=== PATIENT | male | born 1955 | race African-American/Black ===

== ENCOUNTER 2017-04-17 19:26 | Emergency (ER) | payer OTHER ==
[2017-04-17 19:55] LABS: #Basophils 0.1 thou/uL (0.0-0.2); #Eosinphils 0.4 thou/uL (0.0-0.7); #Lymphocytes 1.7 thou/uL (1.20-3.40); #Monocytes 0.7 thou/uL (0.11-0.59); #Neutrophils 4.6 thou/uL (1.40-6.50); %Basophils 0.7 % (0.0-1.0); %Eosinophils 5.8 % (0.0-10.0); %Lymphocytes 22.8 % (21.0-51.0); %Monocytes 9.5 % (0.0-10.0); %Neutrophils 61.2 % (42.0-75.0); Hemoglobin 10.1 g/dL (14.0-18.0); Mean Corpuscular HGB CONC 32.9 g/dL (32.0-36.0); Mean Platelet Volume 6.8 fL (7.4-10.4); Platelet Count 243 thou/uL (130-400); RBC Distribution Width 12.9 % (11.5-14.5); Red Blood Cell (RBC) Count 3.38 mill/uL (4.70-6.10); White Blood Cell (WBC) Count 7.5 thou/uL (4.8-10.8)
[2017-04-17 20:04] LABS: INR-International Normal Ratio 1.1; PTT 31.6 SEC (22.9-36.1); Prothrombin Time 14.3 SEC (12.0-14.7)
[2017-04-17 20:06] LABS: D-Dimer Test 0.57 *mcg/mL (0.27-0.43)
[2017-04-17 20:15] LABS: ALT (SGPT) 11 U/L (8-55); AST (SGOT) 14 U/L (5-34); Alkaline Phosphatase 73 U/L (40-150); Anion Gap 13 mmol/L (10-20); BUN (Urea Nitrogen) 73 mg/dL (8.4-25.7); Bilirubin, Total 0.2 mg/dL (0.2-1.2); CK (CPK) 529 U/L (30-200); Calc. Creatinine Clearance 0 mL/min (70-130); Calcium 7.2 mg/dL (7.8-10.44); Carbon Dioxide 25 mmol/L (23-31); Chloride 103 mmol/L (98-107); Estimated GFR-MDRD 5; Globulin 3.2 g/dL (2.4-3.5); Glucose 162 mg/dL (80-115); Lipase 12 U/L (8-78); Magnesium 1.6 mg/dL (1.6-2.6); Potassium 4.4 mmol/L (3.5-5.1); Protein, Total 6.2 g/dL (5.8-8.1); Sodium 137 mmol/L (136-145)
--- NOTE | 2017-04-17 20:15 | RAD ---
PORTABLE AP CHEST X-RAY 04/17/17 HISTORY: Chest pain and cough for a few days. COMPARISON: 03/17/16. FINDINGS: Postsurgical changes related to median sternotomy are noted. Cardiac silhouette is magnified by proje ction and stable in size. There is patchy increased density at the left lung base with blunting of th e left lateral costophrenic angle stable from the prior study as well as the study on 10/10/15 probabl y related to chronic pleural and parenchymal lung changes. The lungs are otherwise clear. No other in terval change. IMPRESSION: 1. No acute cardiopulmonary process. 2. Chronic pleural and parenchymal lung changes at the left lung base. POS: [facility]
[2017-04-17 20:18] LABS: CKMB 5.8 ng/mL (0-6.6); Troponin I 0.016 ng/mL (< 0.028)
[2017-04-17] MEDS ORDERED: Nitroglycerin 2% Ointment 1 INCH/1 GM Packet ONE (20:47)
[2017-04-17 21:08] LABS: Bilirubin Negative (Negative); Blood, Urine Moderate (Negative); Clarity CLEAR (Clear); Glucose, Urine (Dipstick) 250 mg/dL (Negative); Leukocyte Negative (Negative); Nitrite Negative (Negative); Protein, Urine (Dipstick) 300 mg/dL (Neg-Trace); Specific Gravity, Urine 1.014 (1.002-1.036)
[2017-04-17 21:11] LABS: Bacteria/HPF None Seen HPF (None Seen); Hyaline Casts/LPF 0-3 HYALINE CAST LPF (0-3 Hyaline); Pathc Cast-AUWi Flag 0.13 (0-2.49); Squamous Epithelial None Seen HPF (0-3); WBC/HPF 0-3 HPF (0-3)
== END 2017-04-17 21:37 | disposition home or self-care (01) ==
LOC: ERS 19:26
DX: R07.9 Chest pain, unspecified (principal); E11.9 Type 2 diabetes mellitus without complications; I10 Essential (primary) hypertension; E78.5 Hyperlipidemia, unspecified; E66.9 Obesity, unspecified; Z79.899 Other long term (current) drug therapy
CPT/HCPCS: 71045; 80053; 81003; 81015; 82550; 82553; 83690; 83735; 83880; 84484; 85025; 85379; 85610; 85730; 93005

== ENCOUNTER 2018-01-17 13:06 | Observation (INO) | payer MEDICARE, MEDICAID ==
[2018-01-17 14:16] LABS: #Basophils 0.1 thou/uL (0.0-0.2); #Eosinphils 0.5 thou/uL (0.0-0.7); #Lymphocytes 1.6 thou/uL (1.20-3.40); #Monocytes 0.9 thou/uL (0.11-0.59); #Neutrophils 3.8 thou/uL (1.40-6.50); %Basophils 1.1 % (0.0-1.0); %Eosinophils 7.3 % (0.0-10.0); %Lymphocytes 23.8 % (21.0-51.0); %Monocytes 13.1 % (0.0-10.0); %Neutrophils 54.8 % (42.0-75.0); Hemoglobin 9.4 g/dL (14.0-18.0); Mean Corpuscular Hemoglobin 28.4 pg (27.0-31.0); Mean Corpuscular Volume 85.9 fL (78.0-98.0); Mean Platelet Volume 6.5 fL (7.4-10.4); Platelet Count 356 thou/uL (130-400); RBC Distribution Width 12.3 % (11.5-14.5); White Blood Cell (WBC) Count 6.9 thou/uL (4.8-10.8)
[2018-01-17 14:29] LABS: ALT (SGPT) 16 U/L (8-55); AST (SGOT) 16 U/L (5-34); Alkaline Phosphatase 62 U/L (40-150); Anion Gap 15 mmol/L (10-20); BUN (Urea Nitrogen) 57 mg/dL (8.4-25.7); Bilirubin, Total 0.3 mg/dL (0.2-1.2); Calc. Creatinine Clearance 0 mL/min (70-130); Calcium 7.9 mg/dL (7.8-10.44); Carbon Dioxide 26 mmol/L (23-31); Chloride 100 mmol/L (98-107); Estimated GFR-MDRD 4; Globulin 3.2 g/dL (2.4-3.5); Glucose 150 mg/dL (80-115); Magnesium 1.6 mg/dL (1.6-2.6); Potassium 4.2 mmol/L (3.5-5.1); Protein, Total 6.2 g/dL (5.8-8.1); Sodium 137 mmol/L (136-145)
--- NOTE | 2018-01-17 15:00 | CT ---
CT OF THE HEAD WITHOUT CONTRAST: DATE: 01/17/2018. COMPARISON: 12/09/2015. HISTORY: Trouble sleeping for 3 weeks, hearing loss in both ears. TECHNIQUE: Axial CT imaging at 5 mm intervals from vertex through the skull base without contrast. FINDINGS: Partial opacification of the mastoid air cells noted bilaterally, left greater than right, new when c ompared to the prior exam. No acute osseous abnormality is seen. There is atherosclerotic calcification of the cavernous carotid arteries. No intracranial hemorrhage, midline shift, mass effect, or ventricular enlargement. IMPRESSION: New opacification of the mastoid air cells bilaterally. This could be related to mastoiditis in the proper clinical setting. No intracranial hemorrhage or acute osseous abnormality. POS: [facility]
[2018-01-17] MEDS ORDERED: Ondansetron ODT 4 MG TAB PO PRN (15:24)
[2018-01-17] MEDS ORDERED: Acetaminophen 325 MG TAB PO PRN (15:24)
[2018-01-17] MEDS ORDERED: Ondansetron PF 4 MG/2 ML Vial IVP PRN (15:24)
[2018-01-17 15:59] LABS: Actual Bicarbonate (HCO3a) 26.3 mEq/L (22-28); Analyzer IN Cardio ER; Base Excess (BEa) 1.6 mEq/L (-2.0 to +3.0); CO2 Tension 41.5 mmHg (35.0-45.0); Calcium, Ionized 0.95 mmol/L (1.12-1.30); Carboxyhemoglobin (COHb) 0.3 gm% (0.0-3.0); Hemoglobin (Hb) 9.9 g/dL (14.0-18.0); O2 Tension (PaO2) 64.8 mmHg (> 80.0); Potassium - ABG Lab 4.19 mmol/L (3.70-5.30); pH, Arterial 7.42 (7.35-7.45)
[2018-01-17 16:00] LABS: ALV-art Gradient 33.055 (0-20); Puncture Site RBRACH
[2018-01-17 20:05] VITALS: BMI 38.7
[2018-01-17] MEDS ORDERED: Dextrose 5% in Water 1,000 ML IV PRN (22:05)
[2018-01-17] MEDS ORDERED: HYDROcodone/Acetaminophen 5/325 mg Tablet PO PRN (22:05)
[2018-01-17] MEDS ORDERED: HumaLOG 300 UNITS/3 ML VIAL SC PRN ×2 (22:05)
[2018-01-17] MEDS ORDERED: Dextrose 50% Abboject 50 ML SYRINGE IVP PRN (22:05)
[2018-01-17] MEDS ORDERED: NIFEdipine XL 60 MG TAB PO SCH (22:15)
[2018-01-17] MEDS ORDERED: Carvedilol 6.25 MG TAB PO SCH (22:15)
[2018-01-17] MEDS: Ampicillin/Sulbactam 1.5 GM in Sodium Chloride 0.9% 100 ML IVPB SCH (23:16)
[2018-01-17] MEDS: Calcium Acetate 667 MG CAP PO SCH (23:16)
--- NOTE | 2018-01-18 01:45 | HP ---
CHIEF COMPLAINT: Daytime sleepiness, hearing loss, inability to sleep at night, and syncopal episode. HISTORY OF PRESENT ILLNESS: This is a 62-year-old gentleman with end-stage renal disease, peritoneal dialysis dependent, who was recently admitted to [facility] with hypertensive urgency. The patient presented there with elevated blood pressure and according to the , he was noted to have a slurred speech. No imaging studies according to them was done and the patient was subsequently discharged after the blood pressure was controlled by resumption of the patient's antihypertensive medications. According to the patient and , ever since then, the patient has not been himself, he has not been able to sleep at night and with excessive sleepiness while driving to the point that the patient has fallen asleep 3 times while driving. On one episode, the patient, coming out, slumped and this, he attributed to a sudden feeling of excessive sleepiness. No jerky movements and no convulsive episode noted. Over the course of these illnesses, the patient now complained of hearing loss and very difficult to communicate with this patient as his hearing seems to be going down. The patient presented to the ER with a constellation of these symptoms and a decision has been taken to admit this patient at least for observation. According to the , the patient sleeps, snores at night and may occasionally cease from breathing, raising the possibility of significant sleep apnea in this patient causing daytime somnolence. PAST MEDICAL HISTORY: Significant for end-stage renal disease, peritoneal dialysis dependent, diabetes, obesity, hypertension, and hyperparathyroidism. MEDICATIONS: Reviewed and documented on Medicaid. ALLERGIES: TRAMADOL. FAMILY HISTORY: Not significant related to present illness. SOCIAL HISTORY: Denies alcohol, tobacco, or illicit drug use. REVIEW OF SYSTEMS: As documented in the body of the history. All the other systems were reviewed and found not to be significantly related to present illness. PHYSICAL EXAMINATION: GENERAL: The patient was found to be very anxious and nervous about his condition, not able to be following. VITAL SIGNS: Blood pressure 178/72, pulse 86, respiratory rate of 20, afebrile, temperature 98, O2 saturation of 100% on room air. HEENT: Unremarkable. CARDIOVASCULAR: First and second sounds were heard. RESPIRATORY : Clear to auscultation. DIGESTIVE : Revealed an obese abdomen with positive bowel sounds. EXTREMITIES: No peripheral edema. SKIN: No new bruise or rash. LYMPHATICS: No peripheral lymphadenopathy. IMPRESSION: 1. End-stage renal disease, peritoneal dialysis dependent. 2. Excessive daytime somnolence, query cause, may be related to possible severe sleep apnea. 3. Obesity. 4. Diabetes mellitus type 2. 5. Hearing loss and possibly related to the recent CT diagnosis of mastoiditis. PLAN: 1. Admit the patient to telemetry overnight for observation due to reports of syncopal episode. 2. IV antibiotics and subsequently transition to oral Augmentin on discharge, will follow up with ENT. 3. We will monitor the patient's oximetry overnight to identify any possibility of significant hypoxic episode. 4. The patient to benefit from official sleep study. 5. Further management will be dependent on the clinical course. 6. Code status is full. Job ID: [id number]
[2018-01-18 07:27] LABS: Albumin 2.8 g/dL (3.4-4.8); Anion Gap 14 mmol/L (10-20); BUN (Urea Nitrogen) 51 mg/dL (8.4-25.7); BUN/Creatinine Ratio 3.53; Calc. Creatinine Clearance 9 mL/min (70-130); Carbon Dioxide 27 mmol/L (23-31); Chloride 100 mmol/L (98-107); Estimated GFR-MDRD 4; Glucose 269 mg/dL (80-115); Phosphorus 5.7 mg/dL (2.3-4.7); Potassium 3.9 mmol/L (3.5-5.1); Sodium 137 mmol/L (136-145)
[2018-01-18] MEDS ORDERED: Carvedilol 25 MG TAB PO SCH (08:00)
[2018-01-18] MEDS: Ampicillin/Sulbactam 1.5 GM in Sodium Chloride 0.9% 100 ML IVPB SCH (08:10)
[2018-01-18] MEDS: Calcium Acetate 667 MG CAP PO SCH ×3 (08:10→16:59)
[2018-01-18] MEDS ORDERED: NIFEdipine XL 90 MG TAB PO SCH (09:00)
[2018-01-18] MEDS ORDERED: Minoxidil 2.5 MG TAB PO SCH (09:00)
[2018-01-18] MEDS ORDERED: Carvedilol 6.25 MG TAB PO SCH ×3 (09:00→21:00)
[2018-01-18] MEDS ORDERED: Aspirin 325 mg Enteric Coated Tablet PO SCH (09:00)
[2018-01-18] MEDS ORDERED: NIFEdipine XL 60 MG TAB PO SCH (09:00)
[2018-01-18 15:49] VITALS: BP 176/79; TEMP 97.4
[2018-01-19] MEDS ORDERED: Calcitriol 0.25 MCG CAP PO SCH (09:00)
--- NOTE | 2018-01-19 12:49 | DIS ---
DATE OF ADMISSION: 01/17/2018 DATE OF DISCHARGE: 01/18/2018 For details of the history and physical, please refer to dictations and records. SUMMARY: This is a 62-year-old gentleman with end-stage renal disease, who presented here with daytime somnolence, hearing difficulty and hypoxia. The patient was evaluated with overnight pulse oximetry that did indicate hypoxic respiratory failure overnight; however, unfortunately, the patient could not qualify for home oxygen. In any case, the patient is very eager to be discharged home with instruction to undergo outpatient sleep study. It is very obvious that this patient has significant sleep apnea result in a hypoxic respiratory failure overnight, which will require CPAP machine to assist with respiration. The patient has also been placed on antibiotics for the recent diagnosis of bilateral mastoiditis, which we do believe contributing to the patient's hearing loss. DISCHARGE DIAGNOSES: Include; 1. Nocturnal hypoxic respiratory failure. 2. End-stage renal disease, peritoneal dialysis dependent. 3. Obesity. 4. Bilateral mastoiditis with hearing deficit. 5. Hypertension. PLAN: 1. To stay compliant with medication. 2. Follow up with Ear, Nose and Throat. 3. Follow up with the sleep study. 4. All this information is being communicated with the patient. 5. Further management will be dependent on the clinical course. Total time spent including face to face encounter 31 minutes. Job ID: [id number]
== END 2018-01-18 18:28 | disposition home or self-care (01) ==
LOC: ERS 13:06 → 2SW 18:24
PROVIDERS: ADMIT Internal Medicine Nephrology; ATTEND Internal Medicine Nephrology
DX: J96.91 Respiratory failure, unspecified with hypoxia (principal); G47.30 Sleep apnea, unspecified; R40.0 Somnolence; I12.0 Hypertensive chronic kidney disease with stage 5 chronic kidney disease or end stage renal disease; E11.22 Type 2 diabetes mellitus with diabetic chronic kidney disease; N18.6 End stage renal disease; E21.3 Hyperparathyroidism, unspecified; H70.93 Unspecified mastoiditis, bilateral; H91.90 Unspecified hearing loss, unspecified ear; E66.9 Obesity, unspecified; Z68.38 Body mass index [BMI] 38.0-38.9, adult; Z88.5 Allergy status to narcotic agent; Z99.2 Dependence on renal dialysis
CPT/HCPCS: 70450; 80053; 80069; 82805; 82962; 83735; 83970; 85025; 96365; 96366; 97139 ×2; 99285; G0378 ×2; G8978; G8979; G8980; 36415; 36416; 90945; G0257; J0295; J7050

== ENCOUNTER 2018-03-29 20:30 | Outpatient (CLI) | payer MEDICARE, MEDICAID | END 2018-03-29 20:31 | disposition home or self-care (01) | LOC: SLEEPLAB 20:30 | PROVIDERS: ATTEND Internal Medicine | DX: G47.33 Obstructive sleep apnea (adult) (pediatric) (principal); R53.83 Other fatigue; R51 Headache; R06.83 Snoring; R35.1 Nocturia; I25.10 Atherosclerotic heart disease of native coronary artery without angina pectoris; I12.0 Hypertensive chronic kidney disease with stage 5 chronic kidney disease or end stage renal disease; E11.22 Type 2 diabetes mellitus with diabetic chronic kidney disease; N18.6 End stage renal disease | CPT/HCPCS: 95811 ==

== ENCOUNTER 2018-10-12 08:19 | Outpatient (CLI) | payer MEDICARE, MEDICAID ==
--- NOTE | 2018-10-12 11:44 | MRI ---
MRI RIGHT ANKLE: Date: 10/12/18 PROVIDED CLINICAL HISTORY: Right ankle pain. FINDINGS: The anterior extensor, medial flexor, peroneal, and Achilles tendons demonstrate an intact MR appeara nce. The medial and lateral ankle ligaments appear intact. The amount of fluid within the tibiotalar joint appears physiologic. There is diffuse tibiotalar join t space loss without focal chondral loss apparent. Subcortical cyst-like changes are seen within the talus at the posterior subtalar joints medially. Regional marrow and muscular signal appear otherwise normal. There is preservation of the normal fat signal intensity within the tarsal sinus. The plantar aponeur osis appears normal. There are ectatic vascular structures present within the tarsal tunnel, which may predispose to tarsa l tunnel syndrome. Alignment appears anatomic. Joint spaces appear otherwise preserved. IMPRESSION: 1. Ectatic vasculature within the tarsal tunnel. Correlate with concerns for tarsal tunnel syndrome. 2. Degenerative changes of the posterior subtalar joint. POS: [facility]
== END 2018-10-12 08:20 | disposition home or self-care (01) ==
LOC: BICMRI 08:19
PROVIDERS: ATTEND Family Medicine
DX: M25.571 Pain in right ankle and joints of right foot (principal); M19.071 Primary osteoarthritis, right ankle and foot; I99.8 Other disorder of circulatory system

== ENCOUNTER 2019-01-31 13:45 | Inpatient (IN) | payer MEDICARE, MEDICAID ==
[2019-01-31 14:30] LABS: #Eosinphils 0.4 thou/uL (0.0-0.7); #Lymphocytes 1.5 thou/uL (1.20-3.40); #Monocytes 1.7 thou/uL (0.11-0.59); #Neutrophils 12.8 thou/uL (1.40-6.50); %Basophils 0.1 % (0.0-1.0); %Eosinophils 2.4 % (0.0-10.0); %Lymphocytes 9.3 % (21.0-51.0); %Monocytes 10.6 % (0.0-10.0); %Neutrophils 77.6 % (42.0-75.0); Mean Corpuscular HGB CONC 31.9 g/dL (32.0-36.0); Mean Corpuscular Hemoglobin 27.9 pg (27.0-31.0); Mean Corpuscular Volume 87.4 fL (78.0-98.0); Mean Platelet Volume 6.4 fL (7.4-10.4); Platelet Count 578 thou/uL (130-400); RBC Distribution Width 13.9 % (11.5-14.5); Red Blood Cell (RBC) Count 3.56 mill/uL (4.70-6.10); White Blood Cell (WBC) Count 16.5 thou/uL (4.8-10.8)
[2019-01-31 14:53] LABS: ALT (SGPT) Less than 7 U/L (8-55); AST (SGOT) 11 U/L (5-34); Albumin 2.4 g/dL (3.4-4.8); Alkaline Phosphatase 70 U/L (40-110); Anion Gap 13 mmol/L (10-20); BUN (Urea Nitrogen) 49 mg/dL (8.4-25.7); Bilirubin, Total 0.4 mg/dL (0.2-1.2); Calc. Creatinine Clearance 0 mL/min (70-130); Calcium 6.9 mg/dL (7.8-10.44); Carbon Dioxide 30 mmol/L (23-31); Chloride 97 mmol/L (98-107); Estimated GFR-MDRD 5; Globulin 3.2 g/dL (2.4-3.5); Glucose 115 mg/dL (80-115); Lipase 4 U/L (8-78); Potassium 3.2 mmol/L (3.5-5.1); Protein, Total 5.6 g/dL (5.8-8.1); Sodium 137 mmol/L (136-145)
[2019-01-31] MEDS ORDERED: Morphine 4 MG/ML VIAL ONE (14:57)
[2019-01-31] MEDS ORDERED: Ondansetron PF 4 MG/2 ML Vial ONE (14:58)
[2019-01-31] MEDS ORDERED: cefTRIAXone\\ROCEPHIN 2 GM VIAL ONE (14:58)
--- NOTE | 2019-01-31 14:59 | RAD ---
Exam: Chest one view HISTORY:Dyspnea Comparison: 04/17/2017 FINDINGS: Cardiac silhouette:Upper normal cardiac silhouette. Sternotomy wires are noted. Aorta: Unremarkable Pulmonary vessels: Slightly prominent Costophrenic angles: Possible small left-sided effusion. LUNGS: Possible left lower lobe opacity due to atelectasis, pneumonia or aspiration. Pneumothorax: None Osseous abnormalities: None IMPRESSION: Pleural and parenchymal changes left lung base. Continued surveillance is recommended.
--- NOTE | 2019-01-31 15:26 | CT ---
CT ABDOMEN AND PELVIS WITHOUT CONTRAST: HISTORY: Abdominal pain, nausea, vomiting and intermittent shortness of breath. The patient reports his dialys is catheter has not been draining for the past two days. FINDINGS: Absence of oral and IV contrast reduce the sensitivity of the exam, particularly for evaluation of so lid organs involved. There is a small pleural effusion with pleural calcifications and a small focal area of loculation. N o pericardial or right sided pleural effusion is seen. There are calcified gallstones. No calculi are seen in the kidneys, ureters or urinary bladder. No hydroureteronephrosis is noted on this side. There is a small amount of free air in the anterior abdomen. There is free fluid in the abdomen and p brennen. A peritoneal dialysis catheter is present and appears intact. There are vascular calcifications without evidence of aneurysmal dilatation of the abdominal aorta. T he prostate is enlarged. There are degenerative changes in the spine. There is edema in the subcutaneous fat. IMPRESSION: 1. Free fluid in the abdomen or pelvis and a tiny amount of free air and a dialysis catheter in place . 2. No CT evidence of urinary tract calculi or obstruction. 3. Cholelithiasis. 4. Prostatic enlargement. Discussed over the telephone with ER physician, Dr. Syeda Mcdonald at 3 p.m. CODE CR POS: [facility]
[2019-01-31] MEDS ORDERED: Cefepime 2 GM in Sodium Chloride 0.9% 100 ML IVPB SCH (17:30)
[2019-01-31] MEDS ORDERED: Vancomycin HCl 1 GM in Premix Bag 1 BAG IVPB SCH (17:30)
--- NOTE | 2019-01-31 18:11 | CON ---
DATE OF CONSULTATION: CONSULTING PHYSICIAN: Anna Gonzales MD REQUESTING PHYSICIAN: ER physician. REASON FOR CONSULTATION: Need for maintenance dialysis. IMPRESSION: 1. End-stage renal disease, on peritoneal dialysis, unable to dialyze for some days now because of malfunction. 2. Peritonitis in the context of peritoneal dialysis. 3. Dysfunctional peritoneal dialysis catheter. 4. Hypokalemia. PLAN: 1. The patient's peritoneal dialysis catheter will be packed with tPA to dwell overnight. 2. We will arrange to do hemodialysis on this patient tomorrow. 3. Broad-spectrum antibiotics, we will give this patient one time dose of vancomycin and cefepime and if the peritoneal dialysis catheter becomes functional, we switch over to intraperitoneal route of antibiotic administration. 4. Check magnesium and renal function panel tomorrow. 5. There is no emergent indication for dialysis. 6. If medical treatment of the catheter dysfunction in this case tPA fails, we will consult the patient's access surgeon to re-evaluate the catheter as catheter may be stuck on the omentum. HISTORY OF PRESENT ILLNESS: History is that of a 63-year-old gentleman with end-stage renal disease, peritoneal dialysis dependent, who presented here with nausea, vomiting, abdominal discomfort, which has been going on for some time to the point that the patient has not been able to dialyze for the past 2 nights. The patient's dialysis catheter also noted to be dysfunctional, in the sense that it does not drain. The patient retains some abdominal dwell that could not be drained given the fact that the catheter is clogged. As a result of this, decision is not being taken to admit this patient. PAST MEDICAL HISTORY: Significant for end-stage renal disease, on peritoneal dialysis; diabetes mellitus type 2, obesity, hypertension, hyperparathyroidism. MEDICATIONS: Reviewed as documented on [employer]. ALLERGIES: TRAMADOL. FAMILY HISTORY: Not significantly related to present illness. SOCIAL HISTORY: No alcohol. No tobacco. No illicit drug use. REVIEW OF SYSTEMS: As documented in the body of history. All other systems were reviewed and found not to be significantly related to the present illness. PHYSICAL EXAMINATION: GENERAL: The patient was found not to be in any obvious respiratory distress. VITAL SIGNS: Noted with blood pressure 110/101. HEENT: Unremarkable. CARDIOVASCULAR: First and second heart sounds were heard. RESPIRATORY: Clear to auscultation. DIGESTIVE SYSTEM: Revealed a tender abdomen to palpation with positive bowel sounds. EXTREMITIES: No peripheral edema. SKIN: No new gross rash. LYMPHATICS: No peripheral lymphadenopathy. SUMMARY: A 63-year-old gentleman with end-stage renal disease, who presented here with dysfunctional dialysis catheter as well as evidence of peritonitis. Thank you for this consultation. We will follow with you. Job ID: [id number]
[2019-01-31] MEDS ORDERED: Sterile Water 10 ML VIAL IVP SCH (18:15)
[2019-01-31] MEDS ORDERED: Activase 2 MG VIAL CATH SCH (18:15)
[2019-01-31] MEDS ORDERED: HYDROcodone/Acetaminophen 5/325 mg Tablet PO PRN (20:02)
[2019-01-31] MEDS ORDERED: Morphine 4 MG/ML VIAL SLOW IVP SCH (20:02)
[2019-01-31] MEDS ORDERED: Dextrose 5% in Water 1,000 ML IV PRN (20:02)
[2019-01-31] MEDS ORDERED: HumaLOG 300 UNITS/3 ML VIAL SC PRN ×2 (20:02)
[2019-01-31] MEDS ORDERED: Ondansetron PF 4 MG/2 ML Vial IVP PRN (20:02)
[2019-01-31] MEDS ORDERED: Dextrose 50% Abboject 50 ML SYRINGE SLOW IVP PRN (20:02)
[2019-01-31] MEDS ORDERED: Ondansetron ODT 4 MG TAB PO PRN (20:02)
[2019-01-31] MEDS ORDERED: Acetaminophen 500 MG TAB PO PRN (20:02)
[2019-01-31] MEDS: NIFEdipine XL 60 MG TAB PO SCH (20:25)
[2019-01-31] MEDS: Famotidine 20 MG TAB PO SCH (20:25)
[2019-01-31] MEDS: hydrALAZINE 20 MG/ML VIAL SLOW IVP PRN (20:25)
[2019-01-31] MEDS: Carvedilol 25 MG TAB PO SCH (20:25)
[2019-01-31] MEDS: Insulin Glargine 20 UNITS in Pre-Filled Syringe 1 EACH SC SCH (20:35)
[2019-01-31] MEDS ORDERED: Non-Formulary Item 1 EACH (Insulin Glargine,Hum.Rec.Anlog [Lantus Solostar] 20 UNIT) SQ SCH (21:00)
[2019-01-31] MEDS: HYDROcodone/Acetaminophen 5/325 mg Tablet PO PRN (21:25)
[2019-01-31 23:24] LABS: HBSAg Index 0.15 S/CO (0-0.99); Hep B Surf Ag Non-Reactive S/CO (NonReactive)
[2019-02-01] MEDS: Morphine 4 MG/ML VIAL SLOW IVP PRN ×4 (00:37→18:47)
[2019-02-01] MEDS: Labetalol HCl 100 MG/20 ML VIAL SLOW IVP PRN ×2 (00:38→05:28)
--- NOTE | 2019-02-01 03:08 | HP ---
PRIMARY CARE PROVIDER: Dr. Veronica Padilla. PRIMARY STUDY ABROAD ADVISOR: Anna Gonzales MD CHIEF COMPLAINT: Abdominal pain. HISTORY OF PRESENT ILLNESS: This is a 63-year-old male, who presents to [facility] Emergency Department at the direction of his peritoneal dialysis nurse for worsening abdominal pain and nonfunctioning peritoneal dialysis catheter. The patient with peritoneal dialysis over the last 2 years, last used approximately 72 hours prior to this evaluation. The patient complained of increasing abdominal pain over the last 48 hours, severe and generalized with radiation to his lower back and buttocks. The patient initially complained of abdominal pain approximately 4 weeks prior to this evaluation with intermittent worsening and resolution. The patient states last bowel movement was within 24 hours and loose and watery. The patient also admits to emesis x2 with some nausea and decreased oral intake of regular meals. The patient denied taking any particular medication to alleviate his symptoms or positional changes that resulted in improvement. The patient admits to associated fatigue, but no documented fever, although has felt warm. The patient underwent evaluation in the emergency room including CT of the abdomen and pelvis showing free fluid in the abdomen with the dialysis catheter in place. Metabolic screening showed evidence of leukocytosis and the patient received IV vancomycin 1.5 g x1 dose in addition to Rocephin 2 g x1 dose with morphine sulfate and Zofran. The patient was transferred to the Hospitalist Service for further evaluation. PAST MEDICAL HISTORY: 1. Coronary artery bypass grafting x3 vessels. 2. Diabetes mellitus type 2 with end-stage renal disease and peripheral neuropathy. 3. Hyperlipidemia. 4. Hypertension. 5. End-stage renal disease with peritoneal dialysis. PAST SURGICAL HISTORY: 1. Status post coronary artery bypass grafting x3 vessels. 2. Status post AV fistula placement in the left upper extremity. 3. Status post peritoneal dialysis catheter placement. 4. Status post right great toe amputation in 2019 with wound VAC placement. CURRENT MEDICATIONS: 1. Lipitor 80 mg p.o. at bedtime. 2. Coreg 6.25 mg p.o. b.i.d. 3. Lantus SoloStar 20 units subcutaneously b.i.d. 4. Minoxidil 2.5 mg p.o. daily. 5. Nifedipine 60 mg p.o. b.i.d. List may not be comprehensive and will need to be confirmed with family members. ALLERGIES: TO TRAMADOL. FAMILY HISTORY: Positive for hypertension and diabetes mellitus. SOCIAL HISTORY: The patient resides in [place], [place]. . Quit alcohol 10 years prior to this evaluation. No current tobacco or illicit drug use. REVIEW OF SYSTEMS: CONSTITUTIONAL: Negative for weight loss or gain, ability to conduct usual activities. SKIN: Negative for rash, itching. EYES: Negative for double vision, pain. ENT/MOUTH: Negative for nose bleeding, neck stiffness, pain, tenderness. CARDIOVASCULAR: Negative for palpitations, dyspnea on exertion, orthopnea. RESPIRATORY: Negative for shortness of breath, wheezing, cough, hemoptysis, fever or night sweats. GASTROINTESTINAL: Negative for poor appetite, abdominal pain, heartburn, nausea, vomiting, constipation, or diarrhea. GENITOURINARY: Negative for urgency, frequency, dysuria, nocturia. MUSCULOSKELETAL: Negative for pain, swelling. NEUROLOGIC/PSYCHIATRIC: Negative for anxiety, depression. ALLERGY/IMMUNOLOGIC: Negative for skin rash, bleeding tendency. Otherwise negative except as stated per HPI. PHYSICAL EXAMINATION: VITAL SIGNS: On admission, blood pressure 211/95, pulse 104, respiratory rate 20, temperature 98.2 degrees Fahrenheit, O2 saturation 98% on room air. GENERAL APPEARANCE: This is a 63-year-old male, writhing on the bed, moaning in pain and responds to questions. HEENT: Pupils are minimally reactive to light and accommodation. Extraocular muscles are intact. Mild conjunctival injection bilaterally. Nares patent. OP is clear. Multiple missing teeth. Oral mucosa dry. NECK: Supple. No cervical adenopathy. No thyromegaly. No carotid bruits. No JVD appreciated. Cervical spine with full active and passive range of motion. No meningeal signs noted. CHEST: Lungs are clear to auscultation bilaterally. CARDIOVASCULAR: S1, S2 without noted murmur, rub, or gallop. ABDOMEN: Distended with tenderness to palpation diffusely. Peritoneal dialysis catheter noted without peripheral erythema. Positive rebound and guarding noted. Positive fluid wave. Landmarks are difficult to palpate due to patient's body habitus. Midline surgical scar noted. EXTREMITIES: Warm and dry with fair turgor. Diminished pulses at the dorsalis pedis, posterior tibial, and popliteal arteries bilaterally. Right great toe status post amputation with wound VAC in place. NEUROLOGIC: Cranial nerves 2 through 12 are grossly intact. No focal or lateralizing signs appreciated. The patient not observed ambulatory during this exam. PERTINENT LABORATORY AND X-RAY FINDINGS: Sodium 137, potassium 3.2, chloride 97, CO2 of 30, BUN 49, creatinine 12.72. Glucose 115. Lactic acid level 0.9. Calcium 6.9. LFTs within normal limits. Lipase 4. CBC showed a white blood cell count of 16.5, hemoglobin 10, hematocrit 31, MCV 87, platelet count 578 with 78% neutrophils. Ascitic body fluid, Gram stain positive for gram-positive cocci in pairs. CT of the abdomen and pelvis dated 01/31/2019, showed peritoneal dialysis catheter in place. Free fluid in the abdomen noted. Small amount of free air in the anterior abdomen consistent with peritoneal dialysis catheter. No urinary tract calculi or obstruction. Portable chest x-ray dated 01/31/2019, showed pleural and parenchymal changes to the left lung base. EKG dated 01/31/2019, by my interpretation shows sinus mechanism with heart rates in the 90s. Attenuated R-waves noted in the precordial leads. Left axis deviation noted. First-degree AV block. No acute ST-T wave changes appreciated. ASSESSMENT AND PLAN: 1. Acute peritonitis. The patient will be admitted to the medical floor. We will continue antibiotic coverage with cefepime 1 g IV q.12 hours with additional vancomycin 1.5 g q.24 hours. Ascitic fluid culture pending. Blood cultures pending x2. Pain control with morphine sulfate 4 mg IV q.4 hours p.r.n. 2. Acute generalized abdominal pain secondary to #1. Continue morphine sulfate 4 mg IV q.4 hours, titrating to clinical response. Serial abdominal exams. Hold peritoneal dialysis pending establishment of functioning peritoneal dialysis catheter. Activase initiated. 3. End-stage renal disease with peritoneal dialysis. Current plan for hemodialysis in the a.m. Current PD catheter obstructed with Activase placed on 01/31/2019. 4. Hypertension. Labile secondary to acute abdominal pain. Hydralazine and labetalol IV as needed for systolic greater than or equal to 170. Resume home blood pressure medication regimen once confirmed. 5. Hypokalemia, mild. Repeat potassium level in the a.m. Given end-stage renal disease, conservative potassium replacement. 6. Diabetes mellitus type 2, insulin requiring. Insulin sliding scale for reflexive coverage until taking regular oral intake. Confirm home insulin regimen. Serial Accu-Cheks before meals and at bedtime. 7. Prophylaxis. SCDs while in bed. Pepcid 20 mg p.o. b.i.d. CODE STATUS: Full. Surrogate medical decision maker is the patient's spouse. Job ID: [id number]
[2019-02-01] MEDS: hydrALAZINE 20 MG/ML VIAL SLOW IVP PRN (03:12)
[2019-02-01] MEDS: HYDROcodone/Acetaminophen 5/325 mg Tablet PO PRN ×2 (03:13→21:21)
[2019-02-01 05:41] LABS: Hemoglobin 9.3 g/dL (14.0-18.0); Hypochromia SLIGHT = 6-15 cells (100X) (0-5/hpf); Lymphocytes 3 % (21-51); MDiff Complete? YES; Mean Corpuscular HGB CONC 32.3 g/dL (32.0-36.0); Mean Corpuscular Hemoglobin 28.1 pg (27.0-31.0); Mean Platelet Volume 6.5 fL (7.4-10.4); Neutrophil 97 % (42-75); Platelet Count 531 thou/uL (130-400); Platelet Morphology Comment Appears Increased; RBC Distribution Width 13.8 % (11.5-14.5); White Blood Cell (WBC) Count 15.7 thou/uL (4.8-10.8)
[2019-02-01 05:45] LABS: ALT (SGPT) Less than 7 U/L (8-55); AST (SGOT) 10 U/L (5-34); Alkaline Phosphatase 59 U/L (40-110); Anion Gap 14 mmol/L (10-20); BUN (Urea Nitrogen) 51 mg/dL (8.4-25.7); BUN/Creatinine Ratio 3.87; Bilirubin, Total 0.3 mg/dL (0.2-1.2); Calc. Creatinine Clearance 8 mL/min (70-130); Carbon Dioxide 26 mmol/L (23-31); Chloride 99 mmol/L (98-107); Estimated GFR-MDRD 5; Globulin 3.3 g/dL (2.4-3.5); Glucose 123 mg/dL (80-115); Magnesium 1.6 mg/dL (1.6-2.6); Phosphorus 7.5 mg/dL (2.3-4.7); Potassium 3.3 mmol/L (3.5-5.1); Protein, Total 5.3 g/dL (5.8-8.1); Sodium 136 mmol/L (136-145)
[2019-02-01] MEDS: Carvedilol 25 MG TAB PO SCH ×2 (07:46→21:22)
[2019-02-01] MEDS: NIFEdipine XL 60 MG TAB PO SCH ×2 (07:47→21:21)
[2019-02-01] MEDS ORDERED: Cefepime 1 GM in Sodium Chloride 0.9% 100 ML IVPB SCH (09:00)
[2019-02-01 10:33] VITALS: BMI 32.7
[2019-02-01] MEDS: Insulin Glargine 20 UNITS in Pre-Filled Syringe 1 EACH SC SCH ×2 (10:43→21:26)
--- NOTE | 2019-02-01 11:51 | PDOC.HOSPP ---
- Subjective Encounter Date: 02/01/19 Encounter Time: 11:45 Subjective: f/u for acute peritonitis in context of ESRD on PD. Receiving Cefepime/ Vancomycin and completing HD session this am. Still c/o abd pain but less nausea. - Objective Vital Signs & Weight: Vital Signs (12 hours) Temp Pulse Resp BP Pulse Ox 02/01/19 07:50 97.4 F L 78 20 179/79 H 97 02/01/19 07:47 85 02/01/19 05:28 85 02/01/19 04:00 97.7 F 85 20 188/75 H 96 02/01/19 03:12 91 02/01/19 02:58 190/82 H 02/01/19 00:38 91 02/01/19 00:28 98.3 F 91 20 198/83 H 97 Weight Admit Weight 228 lb Weight 228 lb I&O: 01/31/19 02/01/19 02/02/19 06:59 06:59 06:59 Intake Total 500 Balance 500 Result Diagrams: 02/01/19 05:08 02/01/19 05:08 Additional Labs: Accuchecks 02/01/19 01/31/19 04:12 20:23 POC Glucose 113 H 94 Microbiology 01/31/19 15:18 Ascites Fluid Culture - Pending Body Fluid Culture - Preliminary 01/31/19 15:06 Venous blood - Right Arm Blood Culture - Preliminary Specimen has been received and culture in progress. No Growth to date. 01/31/19 14:20 Venous blood - Right Arm Blood Culture - Preliminary Specimen has been received and culture in progress. No Growth to date. Laboratory Tests 01/31/19 01/31/19 01/31/19 14:19 14:19 20:28 WBC 16.5 H Hgb 10.0 L Plt Count 578 H Neutrophils % 77.6 H Potassium 3.2 L Creatinine 12.72 H Phosphorus Magnesium Hep Bs Antigen Non-Reactive 02/01/19 05:08 WBC Hgb Plt Count Neutrophils % Potassium Creatinine Phosphorus 7.5 H Magnesium 1.6 Hep Bs Antigen Hospitalist ROS - Medication Medications: Active Medications Generic Name Dose Route Start Last Admin Trade Name Freq PRN Reason Stop Dose Admin Hydrocodone Bitart/Acetaminophen 2 tab 01/31/19 20:02 02/01/19 03:13 [place] 5/325 PO 2 tab Q4H PRN Administration Severe Pain (7-10) Carvedilol 25 mg 01/31/19 21:00 02/01/19 07:46 Coreg PO 25 mg BID EMANUEL Administration Famotidine 20 mg 01/31/19 21:00 01/31/19 20:25 Pepcid PO 20 mg QPM EMANUEL Administration Hydralazine HCl 10 mg 01/31/19 20:02 02/01/19 03:12 Apresoline SLOW IVP 10 mg Q4H PRN Administration SBP > 180 and HR < 70 Insulin Glargine 20 units/ 0.2 mls @ 0 mls/hr 01/31/19 21:00 02/01/19 10:43 Miscellaneous Medication SC Not Given BID [facility] Labetalol HCl 20 mg 01/31/19 20:02 02/01/19 05:28 Normodyne SLOW IVP 20 mg Q4H PRN Administration SBP > 180 and HR >/= 70 Morphine Sulfate 4 mg 01/31/19 20:02 02/01/19 07:47 Morphine SLOW IVP 4 mg Q4H PRN Administration Moderate to Severe Pain (6-10) Nifedipine 60 mg 01/31/19 21:00 02/01/19 07:47 Procardia Xl PO 60 mg BID EMANUEL Administration Ondansetron HCl 4 mg 01/31/19 20:02 01/31/19 20:25 Zofran IVP 4 mg Q6H PRN Administration Nausea/Vomiting - Exam General Appearance: NAD Eye: PERRL, anicteric sclera ENT: normocephalic atraumatic, no oropharyngeal lesions Neck: supple, symmetric, no JVD, no thyromegaly Heart: RRR, no murmur, no gallops, no rubs, diminshed peripheral pulses Respiratory: CTAB, no wheezes, no rales Respiratory - other findings: few rhonchi in bases Gastrointestinal: tender to palpation, diminished bowl sounds Gastrointestinal - other findings: distended, PD catheter in place Extremities: no cyanosis, 1+ LE edema Extremities - other findings: R foot with wound vac in place Skin: normal turgor Neurological: cranial nerve grossly intact, no new deficit Musculoskeletal: normal tone, normal strength Psychiatric: normal affect, A&O x 3 Hosp A/P (1) Acute bacterial peritonitis Code(s): K65.9 - PERITONITIS, UNSPECIFIED Status: Acute Plan: Continue Cefepime IV, await final peritoneal cx, PD catheter tx with cathflo for obstruction (2) Abdominal pain Code(s): R10.9 - UNSPECIFIED ABDOMINAL PAIN Status: Acute Qualifiers: Abdominal location: generalized Qualified Code(s): R10.84 - Generalized abdominal pain Plan: Secondary to #1, Morphine Sulfate IV, continue tx as outlined in #1 (3) ESRD (end stage renal disease) on dialysis Code(s): N18.6 - END STAGE RENAL DISEASE; Z99.2 - DEPENDENCE ON RENAL DIALYSIS Status: Chronic Plan: HD per Renal service until PD catheter obstruction resolved, Renal service following (4) Hyperphosphatemia Code(s): E83.39 - OTHER DISORDERS OF PHOSPHORUS METABOLISM Status: Acute Plan: Secondary to ESRD, HD this am, serial PO3 monitoring (5) Hypokalemia Code(s): E87.6 - HYPOKALEMIA Status: Acute Plan: KCL supplementation (6) DM type 2, uncontrolled, with neuropathy Code(s): E11.40 - TYPE 2 DIABETES MELLITUS WITH DIABETIC NEUROPATHY, UNSP; E11.65 - TYPE 2 DIABETES MELLITUS WITH HYPERGLYCEMIA Status: Chronic Plan: ISS, Glargine 20u BID, serial accuchecks, ADA (7) DM foot ulcer Code(s): E11.621 - TYPE 2 DIABETES MELLITUS WITH FOOT ULCER; L97.509 - NON- PRESSURE CHRONIC ULCER OTH PRT UNSP FOOT W UNSP SEVERITY Status: Chronic Qualifiers: Diabetic foot ulcer location: toe Diabetes mellitus type: type 2 Laterality: right Plan: Continue Wound Vac application with WCT following - Plan continue antibiotics, manager social media, out of bed/ambulate, DVT proph w/SCDs Continue IV Cefepime Await final peritoneal fluid cx results Pain control with Morphine Sulfate 4mg IV q4h prn HD per Renal service AM lab: BMP, CBC
[2019-02-01] MEDS: Minoxidil 2.5 MG TAB PO SCH (14:29)
[2019-02-01] MEDS: Cefepime 1 GM in Sodium Chloride 0.9% 100 ML IVPB SCH (15:33)
[2019-02-01] MEDS ORDERED: PERIT DIALYSIS NO 6 FS SCH (16:30)
[2019-02-01] MEDS ORDERED: DEX FS SCH (16:30)
[2019-02-01] MEDS ORDERED: VANCOMYCIN HCL FS SCH (16:30)
--- NOTE | 2019-02-01 20:55 | PRG ---
DATE OF SERVICE: 02/01/2019 SUBJECTIVE: The patient is seen and examined. Noted with the following vital signs. OBJECTIVE: VITAL SIGNS: Afebrile. Temperature 97.4, pulse 78, respiratory rate of 19, O2 saturations are 94%, blood pressure 113/53. HEENT: Unremarkable. CARDIOVASCULAR: First and second heart sounds were heard. RESPIRATORY SYSTEM: Clear to auscultation. DIGESTIVE SYSTEM: Revealed a benign abdomen. Positive bowel sounds. EXTREMITIES: No peripheral edema. SKIN: No new gross rash. LYMPHATICS: No peripheral lymphadenopathy. IMPRESSION: 1. End-stage renal disease, on peritoneal dialysis. 2. Peritonitis. 3. Clogged, dysfunctional peritoneal dialysis catheter, improved status post tPA treatment. PLAN: 1. The patient to undergo peritoneal dialysis and has already hemodialyzed today. 2. We will now transition over to intraperitoneal antibiotic administration per peritoneal dialysis treatment protocol. 3. Further management will be dependent on the clinical course. Job ID: [id number]
[2019-02-01] MEDS ORDERED: FLU VACC QS2019-20(6MOS UP)/PF 60 MCG/0.5 ML SYRINGE IM ONE (21:00)
[2019-02-01] MEDS: Famotidine 20 MG TAB PO SCH (21:22)
[2019-02-02] MEDS: Cefepime 1 GM in Sodium Chloride 0.9% 100 ML IVPB SCH (03:56)
[2019-02-02] MEDS: HYDROcodone/Acetaminophen 5/325 mg Tablet PO PRN (04:02)
[2019-02-02 05:41] LABS: Eosinophils 2 % (0-10); Hemoglobin 9.2 g/dL (14.0-18.0); Lymphocytes 10 % (21-51); MDiff Complete? YES; Mean Corpuscular HGB CONC 31.6 g/dL (32.0-36.0); Mean Corpuscular Hemoglobin 27.9 pg (27.0-31.0); Mean Corpuscular Volume 88.3 fL (78.0-98.0); Mean Platelet Volume 6.6 fL (7.4-10.4); Monocytes 10 % (0-10); Neutrophil 78 % (42-75); Platelet Count 528 thou/uL (130-400); Platelet Morphology Comment Appears Increased; RBC Distribution Width 13.7 % (11.5-14.5); Red Blood Cell (RBC) Count 3.28 mill/uL (4.70-6.10)
[2019-02-02 06:10] LABS: Albumin 1.9 g/dL (3.4-4.8); Anion Gap 13 mmol/L (10-20); BUN (Urea Nitrogen) 28 mg/dL (8.4-25.7); BUN/Creatinine Ratio 3.59; Calc. Creatinine Clearance 14 mL/min (70-130); Calcium 7.4 mg/dL (7.8-10.44); Carbon Dioxide 28 mmol/L (23-31); Chloride 101 mmol/L (98-107); Estimated GFR-MDRD 9; Glucose 123 mg/dL (80-115); Phosphorus 5.3 mg/dL (2.3-4.7); Potassium 3.5 mmol/L (3.5-5.1); Sodium 138 mmol/L (136-145)
[2019-02-02] MEDS ORDERED: Activase 2 MG VIAL CATH SCH (07:45)
[2019-02-02] MEDS: Carvedilol 25 MG TAB PO SCH ×2 (09:09→20:45)
[2019-02-02] MEDS: NIFEdipine XL 60 MG TAB PO SCH ×2 (10:16→20:45)
[2019-02-02] MEDS: Minoxidil 2.5 MG TAB PO SCH (10:16)
--- NOTE | 2019-02-02 18:08 | PDOC.HOSPP ---
- Subjective Encounter Date: 02/02/19 Encounter Time: 18:00 Subjective: f/u for acute peritonitis on current Cefepime/Vanc day #2 and intermittent dysfunctional PD catheter. HD completed 02/01/19. Decreased abd pain. - Objective Vital Signs & Weight: Vital Signs (12 hours) Temp Pulse Resp BP BP Pulse Ox 02/02/19 16:58 97.7 F 90 18 115/61 90 L 02/02/19 12:00 97.8 F 65 20 111/61 91 L 02/02/19 11:48 97.8 F 65 20 111/61 91 L 02/02/19 10:16 69 108/61 02/02/19 08:00 97.5 F L 69 18 108/61 92 L 02/02/19 07:41 97.7 F 78 20 107/52 L 94 L Weight Admit Weight 228 lb Weight 228 lb I&O: 02/01/19 02/02/19 02/03/19 06:59 06:59 06:59 Intake Total 500 580 Balance 500 580 Result Diagrams: 02/02/19 05:10 02/02/19 05:10 Additional Labs: Accuchecks 02/02/19 02/02/19 02/02/19 16:47 11:55 04:39 POC Glucose 163 H 124 H 119 H 02/01/19 02/01/19 20:53 16:47 POC Glucose 170 H 130 H Microbiology 01/31/19 15:18 Ascites Fluid Culture - Pending Body Fluid Culture - Preliminary 01/31/19 15:18 Ascites Fluid Culture - Pending Body Fluid Culture - Preliminary 01/31/19 15:06 Venous blood - Right Arm Blood Culture - Preliminary Specimen has been received and culture in progress. No Growth to date. 01/31/19 15:06 Venous blood - Right Arm Blood Culture - Preliminary NO GROWTH AT 48 HOURS 01/31/19 14:20 Venous blood - Right Arm Blood Culture - Preliminary Specimen has been received and culture in progress. No Growth to date. 01/31/19 14:20 Venous blood - Right Arm Blood Culture - Preliminary NO GROWTH AT 48 HOURS Laboratory Tests 01/31/19 01/31/19 01/31/19 14:19 14:19 20:28 WBC 16.5 H Hgb 10.0 L Plt Count 578 H Neutrophils % 77.6 H Potassium 3.2 L Creatinine 12.72 H Phosphorus Magnesium Albumin Hep Bs Antigen Non-Reactive 02/01/19 02/01/19 02/02/19 05:08 05:08 05:10 WBC 15.7 H Hgb 9.3 L Plt Count 531 H Neutrophils % Potassium Creatinine Phosphorus 7.5 H 5.3 H Magnesium 1.6 Albumin 1.9 L Hep Bs Antigen Hospitalist ROS - Medication Medications: Active Medications Generic Name Dose Route Start Last Admin Trade Name Freq PRN Reason Stop Dose Admin Hydrocodone Bitart/Acetaminophen 2 tab 01/31/19 20:02 02/02/19 04:02 [place] 5/325 PO 2 tab Q4H PRN Administration Severe Pain (7-10) Carvedilol 25 mg 01/31/19 21:00 02/02/19 09:09 Coreg PO 25 mg BID EMANUEL Administration Famotidine 20 mg 01/31/19 21:00 02/01/19 21:22 Pepcid PO 20 mg QPM EMANUEL Administration Hydralazine HCl 10 mg 01/31/19 20:02 02/01/19 03:12 Apresoline SLOW IVP 10 mg Q4H PRN Administration SBP > 180 and HR < 70 Insulin Glargine 20 units/ 0.2 mls @ 0 mls/hr 01/31/19 21:00 02/01/19 21:26 Miscellaneous Medication SC Not Given BID [facility] Labetalol HCl 20 mg 01/31/19 20:02 02/01/19 05:28 Normodyne SLOW IVP 20 mg Q4H PRN Administration SBP > 180 and HR >/= 70 Minoxidil 2.5 mg 02/01/19 09:00 02/02/19 10:16 Minoxidil PO Not Given DAILY [facility] Morphine Sulfate 4 mg 01/31/19 20:02 02/01/19 18:47 Morphine SLOW IVP 4 mg Q4H PRN Administration Moderate to Severe Pain (6-10) Nifedipine 60 mg 01/31/19 21:00 02/02/19 10:16 Procardia Xl PO Not Given BID [facility] Ondansetron HCl 4 mg 01/31/19 20:02 01/31/19 20:25 Zofran IVP 4 mg Q6H PRN Administration Nausea/Vomiting - Exam General Appearance: NAD, awake alert Eye: PERRL, anicteric sclera ENT: normocephalic atraumatic, no oropharyngeal lesions Neck: supple, symmetric, no JVD, no thyromegaly Heart: RRR, no murmur, no gallops, no rubs Respiratory: CTAB, no wheezes, no rales, no ronchi Gastrointestinal: soft, non-tender, non-distended, no palpable masses Gastrointestinal - other findings: mild fluid wave, PD cath in place Hosp A/P (1) Acute bacterial peritonitis Code(s): K65.9 - PERITONITIS, UNSPECIFIED Status: Acute Plan: Improved, continue Cefepime/Vancomycin, plan for eventual intraperitoneal abx when PD catheter functional (2) Abdominal pain Code(s): R10.9 - UNSPECIFIED ABDOMINAL PAIN Status: Acute Qualifiers: Abdominal location: generalized Qualified Code(s): R10.84 - Generalized abdominal pain Plan: Improved, supportive mgmt (3) ESRD (end stage renal disease) on dialysis Code(s): N18.6 - END STAGE RENAL DISEASE; Z99.2 - DEPENDENCE ON RENAL DIALYSIS Status: Chronic Plan: HD per Renal service, may need additional HD until PD catheter reliable/ functional (4) Hyperphosphatemia Code(s): E83.39 - OTHER DISORDERS OF PHOSPHORUS METABOLISM Status: Acute Plan: Improved with HD (5) Hypokalemia Code(s): E87.6 - HYPOKALEMIA Status: Acute Plan: KCL supplementation (6) DM type 2, uncontrolled, with neuropathy Code(s): E11.40 - TYPE 2 DIABETES MELLITUS WITH DIABETIC NEUROPATHY, UNSP; E11.65 - TYPE 2 DIABETES MELLITUS WITH HYPERGLYCEMIA Status: Chronic (7) DM foot ulcer Code(s): E11.621 - TYPE 2 DIABETES MELLITUS WITH FOOT ULCER; L97.509 - NON- PRESSURE CHRONIC ULCER OTH PRT UNSP FOOT W UNSP SEVERITY Status: Chronic Qualifiers: Diabetic foot ulcer location: toe Diabetes mellitus type: type 2 Laterality: right Plan: Wound vac placement, WCT monitoring - Plan continue antibiotics, PT/OT, social media marketing specialist, out of bed/ambulate Continue IV Cefepime/Vancomycin Await final peritoneal fluid cx results Pain control with Morphine Sulfate 4mg IV q4h prn HD per Renal service PD catheter dysfunctional currently AM lab: BMP
[2019-02-02] MEDS: Insulin Glargine 20 UNITS in Pre-Filled Syringe 1 EACH SC SCH ×2 (20:18→20:47)
[2019-02-02] MEDS: Famotidine 20 MG TAB PO SCH (20:47)
[2019-02-03 06:03] LABS: Albumin 1.8 g/dL (3.4-4.8); Anion Gap 11 mmol/L (10-20); BUN (Urea Nitrogen) 32 mg/dL (8.4-25.7); Calc. Creatinine Clearance 13 mL/min (70-130); Calcium 7.3 mg/dL (7.8-10.44); Carbon Dioxide 29 mmol/L (23-31); Chloride 100 mmol/L (98-107); Estimated GFR-MDRD 8; Glucose 165 mg/dL (80-115); Phosphorus 4.6 mg/dL (2.3-4.7); Sodium 137 mmol/L (136-145)
[2019-02-03 06:08] LABS: Potassium 2.9 mmol/L (3.5-5.1)
[2019-02-03] MEDS ORDERED: Potassium Chloride 20 MEQ TAB PO SCH ×2 (06:45→17:00)
[2019-02-03] MEDS: NIFEdipine XL 60 MG TAB PO SCH ×2 (08:23→20:29)
[2019-02-03] MEDS: Minoxidil 2.5 MG TAB PO SCH (08:24)
[2019-02-03] MEDS: Carvedilol 25 MG TAB PO SCH ×2 (08:24→20:37)
[2019-02-03] MEDS: Insulin Glargine 20 UNITS in Pre-Filled Syringe 1 EACH SC SCH ×2 (08:25→20:30)
--- NOTE | 2019-02-03 08:43 | PRG ---
DATE OF SERVICE: 02/02/2019 SUBJECTIVE: The patient was seen and examined. The tPA with a plan to do peritoneal dialysis at night. Noted with the following vital signs. OBJECTIVE: VITAL SIGNS: Afebrile, temperature 97.7, pulse 67, respiratory rate of 18, O2 saturation of 92%, with blood pressure 95/50. HEENT: Unremarkable. CARDIOVASCULAR: First and second heart sounds were heard. RESPIRATORY: Clear to auscultation. DIGESTIVE: Revealed a benign abdomen. EXTREMITIES: No peripheral edema. SKIN: No new gross rash. LYMPHATICS: No peripheral lymphadenopathy. LABORATORY INVESTIGATION: Showed a white count of 13,000, hemoglobin 9.2, platelets 528,000. Chemistry showed a creatinine of 7.79, BUN of 28, phosphorus of 5.3, and albumin 1.9. IMPRESSION: 1. End-stage renal disease, on peritoneal dialysis. 2. Catheter malfunction of the peritoneal dialysis catheter. 3. Peritonitis. PLAN: 1. The patient has had tPA all through the day. At night, he will undergo peritoneal dialysis, and if the catheter works, we will continue to use this. Otherwise, the patient will be transitioned over to hemodialysis and surgeon was consulted to possibly replace the peritoneal dialysis catheter. 2. Peritoneal dialysis protocol is being used to treat the peritonitis. Follow up the culture for sensitivity. 3. On February 03, Dr. Baez will be covering me. Job ID: [id number]
--- NOTE | 2019-02-03 10:32 | PRG ---
DATE OF SERVICE: 02/03/2019 SUBJECTIVE: The patient is seen and examined at the bedside. He feels somewhat better. His abdominal discomfort improved. He is able to eat. He just had hemodialysis this morning. OBJECTIVE: VITAL SIGNS: Blood pressure is 159/69, pulse is 79, respirations 18, temperature is 97.6, and O2 saturation 95% on room air. HEENT: His head is atraumatic and normocephalic. Sclerae are nonicteric. Conjunctivae palish. Oral mucosa is somewhat dry. NECK: Supple. LUNGS: Breath sounds diminished at both bases. HEART: S1 and S2 normal. No S3. No S4. ABDOMEN: Soft. Mildly tender on deeper palpation. The peritoneal dialysis catheter is in place. EXTREMITIES: Right foot with wound VAC. NEUROLOGIC: He is alert and oriented x4. There are no any motor deficits. LABORATORY DATA: Labs showed sodium of 137, potassium 2.9, chloride 100, CO2 of 29, BUN is 32, creatinine 8.21, glycemia is ranging from 124 to 155, calcium 7.3, and albumin 1.8. Microbiology, presumptive Enterococcus species on ascitic fluid culture. Blood cultures x2 negative. IMPRESSION: 1. Acute bacterial peritonitis with positive ascitic culture for Enterococcus, on meropenem. We will continue that antibiotic. 2. Abdominal pain secondary to #1, improved. 3. End-stage renal disease, on dialysis. The patient just received dialysis per Dr. Castillo's supervision. 4. Hypokalemia. He received 40 mEq of potassium chloride this morning. 5. Diabetes mellitus, type 2. 6. Right foot diabetic foot ulcer managed per wound care daily. PLAN: Continue antibiotics. We will trim the regimen as soon as we have final report. We will continue his hemodialysis. Continue p.r.n. pain management with morphine. Job ID: [id number]
[2019-02-03] MEDS: Morphine 4 MG/ML VIAL SLOW IVP PRN ×2 (11:29→20:38)
[2019-02-03] MEDS: HYDROcodone/Acetaminophen 5/325 mg Tablet PO PRN (12:00)
--- NOTE | 2019-02-03 20:31 | PRG ---
DATE OF SERVICE: 02/03/2019 SERVICE: Nephrology. SUBJECTIVE: A 63-year-old male with multiple comorbidities including end-stage renal disease, on peritoneal dialysis, who was admitted due to worsening abdominal pain as well as associated with nausea and vomiting and malfunction of PD catheter. The patient had CTA that showed the catheter that was blocked with improvement and subsequently had peritoneal dialysis last night. Feeling better today. OBJECTIVE: VITAL SIGNS: Temperature 97.6, pulse 79, respiratory rate 18, SpO2 of 95% on room air, blood pressure is 159/69. GENERAL: Middle-aged male, in no obvious distress. Afebrile. Anicteric. Acyanotic. HEENT: Normocephalic and atraumatic. CARDIOVASCULAR: Regular rhythm and rate. Soft systolic murmur noted. RESPIRATORY: Fair air entry bilaterally with no obvious crackle or rhonchi. GI: Full, soft. No obvious tenderness. PD catheter noted. EXTREMITIES: Right foot covered with dressing. Prior mid toe amputation noted. Left foot is grossly normal with no obvious edema or erythema. SENIOR WATER RESOURCES ENGINEER: Conscious, alert, oriented x3 with appropriate mental status. Cranial nerves 2 through 12 are grossly intact. DIAGNOSTIC DATA: Renal function panel showed sodium 137, potassium 2.9, chloride 100, CO2 29, BUN 32, creatinine 8.21, glucose 165, calcium 7.3, phosphorus 4.6, albumin 1.8. ASSESSMENT: 1. Enterococcus bacteria. 2. Peritoneal dialysis associated peritonitis. Ascitic fluid is growing enterococcus. 3. End-stage renal disease, on peritoneal dialysis. 4. Hypokalemia. 5. Peritoneal dialysis catheter malfunction. 6. Abdominal pain, improved. 7. Anemia in chronic kidney disease. PLAN: 1. Replete serum potassium with potassium chloride. 2. Continue antibiotics. 3. Continue PD dialysis later today. 4. Disposition: If the patient tolerates PD later tonight and remained improved, can be discharged from Nephrology point of view tomorrow. We will recheck renal function test in the morning to reassess potassium supplementation. Job ID: [id number]
[2019-02-03] MEDS: Famotidine 20 MG TAB PO SCH (20:37)
[2019-02-04] MEDS ORDERED: Cefepime 1 GM in Sodium Chloride 0.9% 100 ML IVPB SCH (03:00)
[2019-02-04 05:48] LABS: Anion Gap 12 mmol/L (10-20); BUN (Urea Nitrogen) 30 mg/dL (8.4-25.7); BUN/Creatinine Ratio 3.53; Calc. Creatinine Clearance 13 mL/min (70-130); Calcium 7.4 mg/dL (7.8-10.44); Carbon Dioxide 28 mmol/L (23-31); Chloride 100 mmol/L (98-107); Estimated GFR-MDRD 8; Glucose 164 mg/dL (80-115); Magnesium 1.7 mg/dL (1.6-2.6); Phosphorus 4.3 mg/dL (2.3-4.7); Potassium 3.6 mmol/L (3.5-5.1); Sodium 136 mmol/L (136-145); Vancomycin, Random 26.7 ug/mL (See Comment)
[2019-02-04] MEDS ORDERED: Potassium Chloride 20 MEQ TAB PO SCH (07:00)
[2019-02-04] MEDS: NIFEdipine XL 60 MG TAB PO SCH ×2 (08:56→20:27)
[2019-02-04] MEDS: Carvedilol 25 MG TAB PO SCH ×2 (08:56→20:28)
[2019-02-04] MEDS ORDERED: Sterile Water 10 ML VIAL IVP SCH (09:00)
[2019-02-04] MEDS ORDERED: Activase 2 MG VIAL CATH SCH (09:00)
[2019-02-04] MEDS ORDERED: Vancomycin HCl 1 GM in PERIT. DIALYSIS NO.6-1.5 % DEX 2,000 ML FS SCH (11:15)
[2019-02-04] MEDS: HYDROcodone/Acetaminophen 5/325 mg Tablet PO PRN (11:25)
[2019-02-04] MEDS: Minoxidil 2.5 MG TAB PO SCH (11:44)
[2019-02-04] MEDS: Insulin Glargine 20 UNITS in Pre-Filled Syringe 1 EACH SC SCH ×2 (11:44→20:30)
--- NOTE | 2019-02-04 12:35 | PRG ---
DATE OF SERVICE: 02/04/2019 SUBJECTIVE: The patient is seen and examined at the bedside. He wants to go home. He does not have much complaints to offer, but there is a problem with his PD catheter, which was clogged up and alteplase was used to open it, but most likely he will have to have replace catheter. OBJECTIVE: VITAL SIGNS: Blood pressure is 116/51, pulse is 78, temperature is 97.3, respirations 19, and O2 saturation 98% on room air. HEENT: His head is atraumatic and normocephalic. Eyes are PERRLA. Sclerae are nonicteric. Conjunctivae palish. Oral mucosa is slightly dry. NECK: Supple. LUNGS: Breath sounds diminished at both bases. HEART: S1, S2 normal. Somewhat distant. No S3. No S4. ABDOMEN: Soft. PD catheter in place. Bowel sounds are present. No organomegaly. EXTREMITIES: No clubbing, cyanosis, or edema. NEUROLOGIC: He is alert and oriented x4. There is no any motor or sensory deficits. LABORATORY DATA: Showed normal electrolytes, BUN of 30, creatinine 8.5, glucose ranging from 145 to 169, calcium 7.4, albumin 2.0. Random vancomycin 26.7. Microbiology; ascitic fluid culture growing Enterococcus faecalis, pansensitive. IMPRESSION: 1. Acute bacterial peritonitis with positive ascitic culture for Enterococcus. Currently, the patient is on vancomycin. The case was discussed with his social work specialist, Dr. Baez. He would like to continue vancomycin with dialysis, but he thinks that PD catheter needs to be replaced. 2. Abdominal pain secondary to #1, improved. 3. End-stage renal disease on peritoneal dialysis. 4. Hypokalemia corrected. 5. Diabetes mellitus type 2. The patient is on both long-acting and short-acting insulins. His glycemia is ranging from 88 to 169, it is relatively well controlled on this regimen. 6. Right foot diabetic foot ulcer, managed per wound care daily. PLAN: Plan is to continue his vancomycin and apparently his PD catheter will be replaced on Wednesday. We will continue his daily wound care and continue dialysis per Nephrology team. Job ID: [id number]
[2019-02-04] MEDS ORDERED: HYDROcodone/Acetaminophen 7.5/325 mg Tablet PO PRN (14:14)
[2019-02-04] MEDS: HYDROcodone/Acetaminophen 7.5/325 mg Tablet PO PRN (15:04)
--- NOTE | 2019-02-04 18:03 | PRG ---
DATE OF SERVICE: 02/04/2019 SERVICE: Nephrology. SUBJECTIVE: A 63-year-old male with end-stage renal disease, on PD, admitted due to catheter malfunction and abdominal pain. The patient was found to have peritonitis and is on antibiotic therapy. The patient had alteplase peritoneal dialysis catheter for clogged catheter with improvement. However, last night, drainage was limited, hence cycler was bypassed. The patient denied abdominal pain, nausea, vomiting, chest pain, shortness of breath, or leg swelling. OBJECTIVE: VITAL SIGNS: Temperature 97.3, pulse 78, respiratory rate 19, SpO2 98% on room air, blood pressure is 118/69. GENERAL: Male patient in no obvious distress. Afebrile. Anicteric. Acyanotic. HEENT: Normocephalic and atraumatic. CARDIOVASCULAR: Regular rhythm and rate with soft systolic murmur. RESPIRATORY: Fair air entry bilaterally with no obvious crackle or rhonchi or use of accessory muscles. GI: Full, soft, nontender, nondistended with normal bowel sounds. PD catheter is in place. EXTREMITIES: Right foot covered with dressing. Wound VAC also is noticed in place. Left foot and the leg are grossly normal with no edema or erythema. SMALL WIND ENERGY INSTALLER: Conscious, alert, and oriented x3 with appropriate mental status. Cranial nerves 2 through 12 are grossly intact. DIAGNOSTIC DATA: Renal function panel today showed sodium 136, potassium 3.6, chloride 100, CO2 of 28, BUN 30, creatinine 8.5, glucose 164, calcium 7.4, phosphorus 4.3, magnesium 1.7, albumin 2.0. Random vancomycin earlier today was 26.7. ASSESSMENT: 1. PD associated peritonitis. Ascitic fluid grew Enterococcus, which is susceptible to ampicillin and vancomycin. The patient is currently getting vancomycin peritoneally. 2. End-stage renal disease, on peritoneal dialysis. The patient had catheter malfunction requiring alteplase. Drainage last night was inadequate again. 3. Hypokalemia, repleted. 4. Hypoalbuminemia. 5. Abdominal pain, resolved. 6. Anemia in chronic kidney disease. 7. Hypertension, controlled. PLAN: 1. We will decrease vancomycin dose from 2 g to 1 g we will also instill alteplase to the PD catheter today. 2. Other treatment as per primary attending. 3. We will arrange for outpatient PD antibiotics with the patient's usual dialysis unit. I discussed care plan with the patient and spouse at the bedside. More than 30 minutes was spent on this encounter. We will continue PD treatments using the same schedule. Job ID: [id number]
[2019-02-04] MEDS: Famotidine 20 MG TAB PO SCH (20:28)
[2019-02-05] MEDS: HYDROcodone/Acetaminophen 7.5/325 mg Tablet PO PRN ×2 (01:02→13:12)
[2019-02-05 06:47] LABS: Vancomycin, Trough 21.5 ug/mL
[2019-02-05] MEDS: Carvedilol 25 MG TAB PO SCH ×2 (08:35→20:38)
[2019-02-05] MEDS: NIFEdipine XL 60 MG TAB PO SCH ×2 (08:35→20:38)
[2019-02-05] MEDS: Minoxidil 2.5 MG TAB PO SCH (08:35)
[2019-02-05] MEDS: Insulin Glargine 20 UNITS in Pre-Filled Syringe 1 EACH SC SCH (08:37)
--- NOTE | 2019-02-05 17:32 | PDOC.HOSPP ---
- Subjective Encounter Date: 02/05/19 Encounter Time: 13:20 Subjective: Patient seen and examined for Peritonitis. Nausea improved. Appetite improving. No new complaints. No overnight events - Objective Vital Signs & Weight: Vital Signs (12 hours) Temp Pulse Resp BP Pulse Ox 02/05/19 08:35 68 02/05/19 07:28 97.4 F L 68 20 142/62 H 98 Weight Admit Weight 228 lb Weight 228 lb Result Diagrams: 02/02/19 05:10 02/04/19 05:16 Additional Labs: Accuchecks 02/05/19 02/05/19 02/05/19 16:24 11:23 04:26 POC Glucose 127 H 187 H 205 H 02/04/19 20:31 POC Glucose 144 H Hospitalist ROS - Review of Systems Respiratory: denies: cough, dry, shortness of breath, hemoptysis, SOB with excertion, pleuritic pain, sputum, wheezing, other Cardiovascular: denies: chest pain, palpitations, orthopnea, paroxysmal noc. dyspnea, edema, light headedness, other - Medication Medications: Active Medications Generic Name Dose Route Start Last Admin Trade Name Freq PRN Reason Stop Dose Admin Hydrocodone Bitart/Acetaminophen 2 tab 02/04/19 14:14 02/05/19 13:12 Union 7.5/325 PO 2 tab Q4H PRN Administration Pain 6-10 Carvedilol 25 mg 01/31/19 21:00 02/05/19 08:35 Coreg PO 25 mg BID EMANUEL Administration Famotidine 20 mg 01/31/19 21:00 02/04/19 20:28 Pepcid PO 20 mg QPM EMANUEL Administration Hydralazine HCl 10 mg 01/31/19 20:02 02/01/19 03:12 Apresoline SLOW IVP 10 mg Q4H PRN Administration SBP > 180 and HR < 70 Insulin Glargine 20 units/ 0.2 mls @ 0 mls/hr 01/31/19 21:00 02/05/19 08:37 Miscellaneous Medication SC Not Given BID EMANUEL Heparin Sodium (Porcine) 3,000 6,003 mls @ 0 mls/hr 02/01/19 16:30 02/02/19 21:45 units/ Peritoneal Dialysis FS 6,003 mls Solution WILLCALL EMANUEL Administration As Directed Labetalol HCl 20 mg 01/31/19 20:02 02/01/19 05:28 Normodyne SLOW IVP 20 mg Q4H PRN Administration SBP > 180 and HR >/= 70 Minoxidil 2.5 mg 02/01/19 09:00 02/05/19 08:35 Minoxidil PO 2.5 mg DAILY EMANUEL Administration Morphine Sulfate 4 mg 01/31/19 20:02 02/03/19 20:38 Morphine SLOW IVP 4 mg Q4H PRN Administration Moderate to Severe Pain (6-10) Nifedipine 60 mg 01/31/19 21:00 02/05/19 08:35 Procardia Xl PO 60 mg BID EMANUEL Administration Ondansetron HCl 4 mg 01/31/19 20:02 01/31/19 20:25 Zofran IVP 4 mg Q6H PRN Administration Nausea/Vomiting - Exam Neck: no JVD Heart: RRR, no gallops Respiratory: CTAB, no rales Gastrointestinal: soft, normal bowel sounds Extremities: no edema Hosp A/P - Plan DVT proph w/SCDs Sepsis due to Peritoneal dialysis catheter associated peritonitis (POA) Dialysis catheter malfunction ESRD on dialysis DM2 Recent diabetic Rt foot infection s/p I&D - has wound vac HTN Hypokalemia Moderate PEM Chronic Anemia due to CKD Obesity BMI 32.7 PLAN: Cont Vancomycin intraperitoneally Hold Lantus due to poor appetite Monitor Vancomycin level Cont current HTN meds Dialysis per Nephrology Cont sliding scale Await outpt Atbx setup Cont wound care [facility] eval
[2019-02-05] MEDS: Famotidine 20 MG TAB PO SCH (20:38)
[2019-02-06 05:53] LABS: #Eosinphils 0.5 thou/uL (0.0-0.7); #Lymphocytes 1.5 thou/uL (1.20-3.40); #Monocytes 0.8 thou/uL (0.11-0.59); #Neutrophils 6.8 thou/uL (1.40-6.50); %Basophils 0.3 % (0.0-1.0); %Eosinophils 4.9 % (0.0-10.0); %Lymphocytes 15.5 % (21.0-51.0); %Monocytes 8.7 % (0.0-10.0); %Neutrophils 70.6 % (42.0-75.0); Hemoglobin 8.5 g/dL (14.0-18.0); Mean Corpuscular HGB CONC 31.7 g/dL (32.0-36.0); Mean Corpuscular Volume 88.4 fL (78.0-98.0); Mean Platelet Volume 6.2 fL (7.4-10.4); Platelet Count 583 thou/uL (130-400); RBC Distribution Width 13.6 % (11.5-14.5); Red Blood Cell (RBC) Count 3.04 mill/uL (4.70-6.10); White Blood Cell (WBC) Count 9.7 thou/uL (4.8-10.8)
[2019-02-06 06:09] LABS: Albumin 1.7 g/dL (3.4-4.8); Anion Gap 12 mmol/L (10-20); BUN (Urea Nitrogen) 30 mg/dL (8.4-25.7); BUN/Creatinine Ratio 3.38; Calc. Creatinine Clearance 12 mL/min (70-130); Calcium 7.6 mg/dL (7.8-10.44); Carbon Dioxide 29 mmol/L (23-31); Chloride 99 mmol/L (98-107); Estimated GFR-MDRD 7; Glucose 192 mg/dL (80-115); Phosphorus 4.9 mg/dL (2.3-4.7); Potassium 3.7 mmol/L (3.5-5.1); Sodium 136 mmol/L (136-145)
[2019-02-06 07:43] VITALS: BP 154/64; TEMP 98.1
--- NOTE | 2019-02-06 08:14 | PRG ---
DATE OF SERVICE: 02/05/2019 SERVICE: Nephrology. SUBJECTIVE: A 63-year-old male with known history of end-stage renal disease, on peritoneal dialysis, admitted due to PD catheter malfunction and abdominal pain. The patient was found to have an Enterococcus peritonitis, on intraperitoneal antibiotics, had dialysis last night with adequate drainage from the catheter after alteplase. Reports feeling better. Denied nausea, vomiting, abdominal pain, or fever. OBJECTIVE: VITAL SIGNS: Temperature 97.4, pulse 68, respiratory rate 20, SpO2 of 98% on room air, blood pressure is 142/62. GENERAL: Comfortable. Afebrile. HEENT: Normocephalic, atraumatic. Oral mucosa is moist. NECK: Supple. No JVD. CARDIOVASCULAR: Regular rhythm and rate with soft systolic murmur. RESPIRATORY: Fair air entry bilaterally with no obvious crackle or rhonchi or use of accessory muscles. GI: Full, soft, nontender, nondistended with normal bowel sounds. PD catheter noted. EXTREMITIES: Right foot big toe amputation and dressing with wound VAC noted. Other extremities are grossly normal with no edema or erythema. WING COVERER: Conscious and alert and oriented x3 with appropriate mental status. Cranial nerves 2 through 12 are grossly intact. DIAGNOSTIC DATA: Vancomycin trough today is 21.5. ASSESSMENT: 1. PD associated peritonitis: Due to Enterococcus. The patient is getting intraperitoneal vancomycin. We will continue and monitor vancomycin trough. 2. End-stage renal disease, on peritoneal dialysis. PD to continue. 3. PD catheter malfunction, status post alteplase, dwelling, with improvement of drainage. 4. Hypokalemia: Repleted. 5. Hypoalbuminemia: Started on Nepro. 6. Abdominal pain: Resolved. 7. Anemia in chronic kidney disease. 8. Hypertension. PLAN: 1. Continue intraperitoneal vancomycin 1 g . 2. Continue PD using current prescription. 3. Monitor blood pressures and adjust antihypertensives to get adequate BP control. 4. Possible discharge tomorrow. The patient will be able to get antibiotic kit from his usual dialysis unit tomorrow. Job ID: [id number]
[2019-02-06] MEDS: NIFEdipine XL 60 MG TAB PO SCH (08:36)
[2019-02-06] MEDS: Carvedilol 25 MG TAB PO SCH (08:37)
[2019-02-06] MEDS: Minoxidil 2.5 MG TAB PO SCH (08:38)
--- NOTE | 2019-02-06 10:05 | PRG ---
DATE OF SERVICE: 02/06/2019 SERVICE: Nephrology. SUBJECTIVE: A 63-year-old male with known history of end-stage renal disease, on peritoneal dialysis, admitted due to abdominal pain and PD catheter malfunction, found to have peritonitis and currently getting intraperitoneal antibiotics. The patient had Alteplase to the PD catheter with improvement of drainage. Treatment last night was uneventful. The patient denied abdominal pain, nausea, vomiting, or shortness of breath. OBJECTIVE: VITAL SIGNS: Temperature 98.1, pulse rate 77, respiratory rate 17, SpO2 of 96% on room air, and blood pressure is 154/64. GENERAL: Comfortable male, in no distress. NECK: Supple with no JVD. HEENT: Normocephalic and atraumatic. CARDIOVASCULAR: Regular rhythm and rate. Normal heart, sounds 1 and 2. RESPIRATORY: Good air entry bilaterally with no crackle or rhonchi or use of accessory muscles. GI: Full, soft, nontender, and nondistended with normal bowel sounds. PD catheter noted. EXTREMITIES: Grossly normal looking, atraumatic with no edema or erythema. Right deep toe amputation and dressing with wound VAC on the right foot noted. HOME AIDE: Conscious, alert, and oriented x3 with appropriate mental status. Cranial nerves II through XII are grossly intact. DIAGNOSTIC DATA: CBC showed WBC count of 9.7, hemoglobin of 8.5, MCV of 88.4, and platelet of 583. Renal function panel showed sodium 136, potassium 3.7, chloride 99, CO2 of 29, BUN 30, creatinine 8.87, glucose 192, calcium 7.6, phosphorus 4.9, and albumin 1.7. ASSESSMENT: 1. PD associated peritonitis due to enterococcus. 2. PD catheter malfunction, status post catheter placed with improvement. 3. Abdominal pain due to peritonitis. Resolved. 4. Hypoalbuminemia. 5. Hypokalemia: Repleted. 6. Diabetes mellitus with diabetic foot ulcer, status post right big toe amputation. 7. Hypertension: Control is acceptable. 8. Anemia in chronic kidney disease. PLAN: 1. We will continue intraperitoneal vancomycin for 2 more weeks given that the patient has received one week of antibiotics here in the hospital. 2. The patient can be discharged from Nephrology point of view. 3. The patient on discharge need to visit the usual dialysis unit to sampler pickup antibiotic kit for intraperitoneal vancomycin therapy. 4. The patient will be followed up in the dialysis unit by the regular refrigerator assembler. Job ID: [id number]
[2019-02-06] MEDS: HYDROcodone/Acetaminophen 7.5/325 mg Tablet PO PRN (10:19)
--- NOTE | 2019-02-07 12:32 | DIS ---
DATE OF ADMISSION: 01/31/2019 DATE OF DISCHARGE: 02/06/2019 DISCHARGE DISPOSITION: Home. FOLLOWUP: 1. Follow up with primary care physician in 1 week. 2. [facility] has been arranged. 3. Outpatient vancomycin has been arranged at the dialysis center. ALLERGIES: THE PATIENT IS ALLERGIC TO TRAMADOL. DISCHARGE MEDICATIONS: All other home medications were left unchanged. The patient was seen and examined on the day of discharge. Denies any new complaints. No nausea, vomiting, abdominal discomfort reported. The patient was advised to monitor blood pressure on a daily basis and to maintain a log. BRIEF HOSPITAL COURSE: The patient is a 63-year-old male with end-stage renal disease, on peritoneal dialysis, presented to the hospital with abdominal discomfort. His workup was consistent with peritoneal dialysis catheter associated with peritonitis due to Enterococcus. He was started on vancomycin intraperitoneally. His symptoms have significantly improved. His WBC count has normalized from 16.5 to 9.7. He underwent dialysis per Nephrology. His CT scan of the abdomen and pelvis was negative for any other findings except for cholelithiasis, enlarged prostate. He has been cleared by Nephrology for discharge. FINAL DIAGNOSES: 1. Sepsis due to peritoneal dialysis associated peritonitis due to Enterococcus. 2. Peritoneal dialysis catheter malfunction. 3. End-stage renal disease, on dialysis. 4. Diabetes mellitus, type 2. 5. Recent diabetic right foot infection, status post incision and drainage. 6. Hypertension. 7. Hypokalemia. 8. Moderate protein energy malnutrition. 9. Chronic anemia due to chronic kidney disease. 10. Obesity with a BMI of 32.7. Plan was discussed with the patient in detail. He stated understanding. Job ID: [id number]
== END 2019-02-06 10:55 | disposition home health service (06) | DRG 919 ==
LOC: ERS 13:45 → T4-A 18:21
PROVIDERS: ADMIT Family Medicine; ATTEND Family Medicine
DX: T85.71XA Infection and inflammatory reaction due to peritoneal dialysis catheter, initial encounter (principal); A41.81 Sepsis due to Enterococcus; N18.6 End stage renal disease; K65.2 Spontaneous bacterial peritonitis; I12.0 Hypertensive chronic kidney disease with stage 5 chronic kidney disease or end stage renal disease; E44.0 Moderate protein-calorie malnutrition; R18.8 Other ascites; E11.22 Type 2 diabetes mellitus with diabetic chronic kidney disease; I25.10 Atherosclerotic heart disease of native coronary artery without angina pectoris; E87.6 Hypokalemia; E66.9 Obesity, unspecified; E78.5 Hyperlipidemia, unspecified; D63.1 Anemia in chronic kidney disease; E83.39 Other disorders of phosphorus metabolism; E11.40 Type 2 diabetes mellitus with diabetic neuropathy, unspecified; E11.621 Type 2 diabetes mellitus with foot ulcer; L97.519 Non-pressure chronic ulcer of other part of right foot with unspecified severity; Z79.4 Long term (current) use of insulin; Z68.32 Body mass index [BMI] 32.0-32.9, adult; Z95.1 Presence of aortocoronary bypass graft; Z89.411 Acquired absence of right great toe; Z99.2 Dependence on renal dialysis; Z88.6 Allergy status to analgesic agent
CPT/HCPCS: 36415; 36416; 71045; 74176; 80053; 80069; 80202; 83605; 83690; 83735; 84484; 85007; 85025; 85027; 87040; 87070; 87077; 87186; 87205; 87340; 93005; 96365; 96366; 96367; 96375; J0360; J0692; J0696; J1815; J2270; J2405; J2997; J3370; J3490

== ENCOUNTER 2019-03-04 10:59 | Observation (INO) | payer MEDICARE, MEDICAID ==
[~2019-03-04 10:59] MED LIST: Iopamidol-370 76% 500 ML 1 ML ONE
[2019-03-04] MEDS ORDERED: Aspirin Chewable 81 MG TAB ONE (11:52)
[2019-03-04] MEDS ORDERED: Nitroglycerin 2% Ointment 1 INCH/1 GM Packet ONE (11:52)
[2019-03-04 11:53] LABS: #Basophils 0.1 thou/uL (0.0-0.2); #Eosinphils 0.9 thou/uL (0.0-0.7); #Monocytes 0.9 thou/uL (0.11-0.59); #Neutrophils 2.9 thou/uL (1.40-6.50); %Basophils 0.8 % (0.0-1.0); %Eosinophils 13.7 % (0.0-10.0); %Lymphocytes 29.2 % (21.0-51.0); %Monocytes 13.6 % (0.0-10.0); %Neutrophils 42.7 % (42.0-75.0); Hemoglobin 8.6 g/dL (14.0-18.0); Mean Corpuscular HGB CONC 31.5 g/dL (32.0-36.0); Mean Corpuscular Hemoglobin 27.8 pg (27.0-31.0); Mean Corpuscular Volume 88.2 fL (78.0-98.0); Mean Platelet Volume 7.6 fL (7.4-10.4); Platelet Count 226 thou/uL (130-400); RBC Distribution Width 15.5 % (11.5-14.5); White Blood Cell (WBC) Count 6.8 thou/uL (4.8-10.8)
--- NOTE | 2019-03-04 11:56 | RAD ---
EXAM: XR Chest 1 View Portable PROVIDED CLINICAL HISTORY: Chest pain COMPARISON: 01/31/2019 FINDINGS: Cardiac and mediastinal silhouette is unchanged in appearance. Median sternotomy changes are again se en. Left basilar pleural and/or parenchymal opacity. Right lung appears clear. No evidence for pneumothorax. IMPRESSION: Left basilar pleural and/or parenchymal opacity. This may reflect pleural fluid with adjacent atelect asis or pneumonia. Follow-up recommended.
[2019-03-04] MEDS ORDERED: hydrALAZINE 20 MG/ML VIAL ONE (11:59)
[2019-03-04 12:04] LABS: ALT (SGPT) 7 U/L (8-55); AST (SGOT) 12 U/L (5-34); Albumin 2.3 g/dL (3.4-4.8); Alkaline Phosphatase 63 U/L (40-110); Anion Gap 11 mmol/L (10-20); BUN (Urea Nitrogen) 13 mg/dL (8.4-25.7); Bilirubin, Total 0.4 mg/dL (0.2-1.2); Calc. Creatinine Clearance 0 mL/min (70-130); Calcium 7.2 mg/dL (7.8-10.44); Carbon Dioxide 32 mmol/L (23-31); Chloride 101 mmol/L (98-107); Estimated GFR-MDRD 8; Glucose 72 mg/dL (80-115); Lipase Less than 4 U/L (8-78); Magnesium 1.7 mg/dL (1.6-2.6); Phosphorus 3.7 mg/dL (2.3-4.7); Potassium 3.3 mmol/L (3.5-5.1); Protein, Total 5.3 g/dL (5.8-8.1); Sodium 141 mmol/L (136-145)
[2019-03-04 12:27] LABS: CKMB 2.8 ng/mL (0-6.6)
[2019-03-04] MEDS ORDERED: Labetalol HCl 100 MG/20 ML VIAL ONE (12:50)
--- NOTE | 2019-03-04 13:34 | CT ---
EXAM: CT angiogram chest and abdomen with IV contrast and three-dimensional reconstructions PROVIDED CLINICAL HISTORY: Chest pain COMPARISON: Abdomen and pelvis CT 01/31/2019 FINDINGS: Contrast bolus timing is suboptimal. There is no evidence for aortic dissection or aneurysm. Median s ternotomy and CABG changes are again seen. There are mild bilateral pleural effusions. Left-sided Bochdalek diaphragmatic hernia is again noted. Mesenteric vessels are noted within the herniated fat. The solid abdominal organs demonstrate an unremarkable CT appearance. Free intraperitoneal fluid is d emonstrated, presumably on the basis partially visualized peritoneal dialysis catheter. There is no evidence for bowel obstruction. No localized intraperitoneal fat stranding. Extensive vascular calcif ication. The osseous structures demonstrate no concerning lytic or blastic lesions. IMPRESSION: 1. No evidence for aortic dissection or aneurysm. 2. Mild bilateral pleural effusions. 3. Redemonstration of left-sided Bochdalek hernia containing mesenteric vessels.
[2019-03-04] MEDS ORDERED: Ondansetron PF 4 MG/2 ML Vial IVP PRN (14:44)
[2019-03-04] MEDS ORDERED: Senokot S 8.6-50 MG TAB PO PRN (14:44)
[2019-03-04] MEDS ORDERED: Bisacodyl 10 MG SUPP PR PRN (14:44)
[2019-03-04] MEDS ORDERED: Guaifenesin DM 100-10/5 ML UDCUP PO PRN (14:44)
[2019-03-04] MEDS ORDERED: Acetaminophen 325 MG TAB PO PRN (14:44)
[2019-03-04 15:11] LABS: Troponin I 0.068 ng/mL (< 0.028)
--- NOTE | 2019-03-04 15:31 | HP ---
REASON FOR ADMISSION: Hypertensive urgency, right-sided chest pain, volume overload. HISTORY OF PRESENTING ILLNESS: The patient gives history of developing right-sided chest discomfort with shortness of breath. This happened from last night. He states he had dialysis done yesterday, which was a 4-hour session. No complaints of fever. No complaints of expectoration. He has no palpitations or PND. The patient says he normally ambulates by himself. He has a chronic wound in his right foot, which has been present after amputation of his great toe from last 3 months now. He gets wound care at home. PAST MEDICAL AND SURGICAL HISTORY: History of end-stage renal disease, on hemodialysis on Wednesday, Wednesday, Wednesday; hypertension; dyslipidemia; diabetes mellitus, type 2; peripheral neuropathy; chronic right foot wound; CABG for three-vessel disease; AV fistula in left upper extremity; the patient still has a peritoneal dialysis catheter in place; right great toe amputation done last year. CURRENT MEDICATIONS: 1. Atorvastatin 80 mg p.o. at bedtime. 2. Coreg 6.25 mg twice daily. 3. Lantus 20 units subcu twice daily. 4. Minoxidil 2.5 mg p.o. daily. 5. Procardia XL 60 mg twice daily. ALLERGIES: HE IS ALLERGIC TO ULTRAM. PERSONAL HISTORY: He does not abuse alcohol or drugs. No history of smoking. Lives with his . FAMILY HISTORY: Mother is living. Father at the age of 88 from natural causes. CODE STATUS: Full. POWER OF AUTOMOTIVE DETAILER: His . REVIEW OF SYSTEMS: CONSTITUTIONAL: Negative for weight loss or gain, ability to conduct usual activities. SKIN: Negative for rash, itching. EYES: Negative for double vision, pain. ENT/MOUTH: Negative for nose bleeding, neck stiffness, pain, tenderness. CARDIOVASCULAR: Negative for palpitations, dyspnea on exertion, orthopnea. RESPIRATORY: Negative for shortness of breath, wheezing, cough, hemoptysis, fever or night sweats. GASTROINTESTINAL: Negative for poor appetite, abdominal pain, heartburn, nausea, vomiting, constipation, or diarrhea. GENITOURINARY: Negative for urgency, frequency, dysuria, nocturia. MUSCULOSKELETAL: Negative for pain, swelling. NEUROLOGIC/PSYCHIATRIC: Negative for anxiety, depression. ALLERGY/IMMUNOLOGIC: Negative for skin rash, bleeding tendency. PHYSICAL EXAMINATION: GENERAL: The patient is a 63-year-old male, who is currently not in any acute distress. VITAL SIGNS: Blood pressure 234/104, pulse 68 per minute, respiratory rate 18 per minute, temperature 98.8 degrees Fahrenheit, saturating 99% on room air. NECK: Supple. No elevated JVD. HEENT: Eyes; extraocular muscles intact. Pupils are reacting to light. Oral cavity, mucous membranes are moist. No exudates or congestion. CARDIOVASCULAR SYSTEM: S1 and S2 heard, regular rhythm. RESPIRATORY SYSTEM: Air entry 1+ bilateral. There are scattered rales in the infrascapular area. ABDOMEN: Soft. Bowel sounds heard. No tenderness, rigidity, or guarding. Has a peritoneal dialysis catheter in place. EXTREMITIES: No peripheral edema or calf tenderness. Has chronic wound at the base of prior right great toe amputation site, it is in a dressing. Peripheral pulses are 1+ bilateral. No gangrene noted. CENTRAL NERVOUS SYSTEM: No gross focal deficits noted. The patient is alert, awake, and oriented well. PSYCHIATRIC: The patient's mood is euthymic. No hallucinations or delusions. LABORATORY DATA: EKG done shows normal sinus rhythm at 72 beats per minute with poor R-wave progression. There are signs of LVH seen. White count of 6.8, hemoglobin and hematocrit are 8.6 and 27, platelet count 226, MCV is 88 with 42% neutrophils. Potassium 3.3, serum bicarb 32, BUN 13, creatinine 7.8, serum glucose 72, calcium 7.2. AST, ALT, and alkaline phosphatase within normal limits. BNP is 2265. Troponin-I 0.04, CK-MB 2.8. Albumin 2.3. CT dissection protocol done shows no evidence of dissection or aneurysm. There is bilateral pleural effusion seen. There is left-sided Bochdalek hernia containing mesenteric vessels, which is chronic. CLINICAL IMPRESSION AND PLAN: The patient will be under observation on telemetry for volume overload with hypertensive urgency. I have spoken to Dr. Baez, who is covering Dr. Castillo, his chemical engineering professor, and the patient will be dialyzing for 2 hours to remove extra volume. We will continue his Lipitor, Plavix, Lopressor, and Procardia XL for now. If needed, hydralazine and clonidine will be added to his current regimen. We will also continue Sensipar and PhosLo as before. DuoNeb q.6 hourly p.r.n. Job ID: [id number]
[2019-03-04 15:53] VITALS: BMI 31.1
[2019-03-04] MEDS: Calcium Acetate 667 MG CAP PO SCH ×2 (16:54→20:27)
[2019-03-04] MEDS ORDERED: NIFEdipine XL 30 MG TAB PO SCH (17:30)
[2019-03-04] MEDS ORDERED: Lisinopril 10 MG TAB PO SCH (17:30)
[2019-03-04] MEDS ORDERED: hydrALAZINE 20 MG/ML VIAL SLOW IVP PRN (17:31)
[2019-03-04] MEDS ORDERED: cloNIDine 0.1 MG TAB PO PRN (17:31)
[2019-03-04] MEDS ORDERED: Dextrose 5% in Water 1,000 ML IV PRN (17:32)
[2019-03-04] MEDS ORDERED: HumaLOG 300 UNITS/3 ML VIAL SC PRN ×2 (17:32)
[2019-03-04] MEDS ORDERED: Dextrose 50% Abboject 50 ML SYRINGE SLOW IVP PRN (17:32)
[2019-03-04] MEDS ORDERED: HYDROcodone/Acetaminophen 5/325 mg Tablet PO PRN (17:33)
--- NOTE | 2019-03-04 20:03 | CON ---
DATE OF CONSULTATION: 03/04/2019 SERVICE: Nephrology. REASON FOR CONSULTATION: Hypertension and end-stage renal disease management. HISTORY OF PRESENT ILLNESS: A 63-year-old male with known history of end-stage renal disease on dialysis, diabetes, hypertension amongst others, who presents to the ER due to worsening chest pain associated with shortness of breath. The patient who used to get peritoneal dialysis, but was recently transitioned to hemodialysis, had last treatment yesterday, Wednesday, in Wednesday, Wednesday, Wednesday schedule. The patient reported waking up today with worsening chest pain which he has been having in the last few days. In the ER, the patient was found to have elevated blood pressure with systolic above 200 and initial troponin was mildly elevated. He is admitted for further evaluation and treatment. Nephrology consult was requested for end-stage renal disease management. PHYSICAL EXAMINATION: VITAL SIGNS: Temperature 97.9, pulse 87, respiratory rate 16, SpO2 of 94% on room air, blood pressure is 205/85. GENERAL: Male patient, in no obvious distress. Afebrile. Anicteric. Acyanotic. HEENT: Normocephalic and atraumatic. Oral mucosa is moist. NECK: Supple with no obvious JVD. CARDIOVASCULAR: Regular rhythm and rate. Normal heart sounds 1 and 2. RESPIRATORY: Fair air entry bilaterally. Air entry is however decreased at both bases. No obvious crackle or rhonchi or use of accessory muscles appreciated. GI: Full, soft, nontender, nondistended with normal bowel sounds. EXTREMITIES: [id number] bilateral leg edema noted. DIAGNOSTIC DATA: CBC showed WBC count of 6.8, hemoglobin of 8.6, MCV of 88.2, and platelets of 226. CMP showed sodium 141, potassium 3.3, chloride 101, CO2 of 32, BUN 13, creatinine 7.83, glucose 72, calcium 7.2, phosphorus 3.7, total bilirubin 0.4, AST 12, ALT 7, alkaline phosphatase 63, total protein 5.3, albumin 2.3. Lipase is less than 4. Magnesium is 1.7. Initial cardiac enzymes showed CK-MB of 2.8, troponin of 0.045. BNP is 2265. Chest x-ray showed left basilar pleural or parenchymal opacity. This may reflect pleural effusion with adjacent atelectasis or pneumonia. CT angio of the chest and abdomen with IV contrast for CT aortic dissection protocol showed no evidence of aortic dissection or aneurysm. Mild bilateral pleural effusion is noted as well as with demonstration of left-sided Bochdalek hernia containing mesenteric vessels. ASSESSMENT: 1. Hypertensive urgency: With systolic blood pressure above 200. 2. Chest pain: Most likely due to hypertensive urgency with coronary ischemia. 3. End-stage renal disease, now on hemodialysis. 4. Fluid overload. 5. Anemia in chronic kidney disease. 6. Coronary artery disease status post coronary artery bypass graft. 7. Type 2 diabetes mellitus. 8. Hypokalemia with potassium of 3.3. PLAN: 1. Given that the patient had a contrast study earlier today, we will plan to do a short treatment of hemodialysis. This will also help volume status as well as blood pressure. 2. We will increase nifedipine to 60 mg daily with a view to improving blood pressure control. 3. We will also give a dose of lisinopril 10 mg p.o. daily. Metoprolol will be continued. We will monitor blood pressure after hemodialysis and titrate antihypertensives with a view to getting adequate BP control. 4. We defer treatment and evaluation of chest pain to primary attending. I discussed with the patient and spouse and I had asked them to bring all their medication for adequate and plan medication reconciliation to facilitate discharge. Further treatment to follow depending on hospital course. Many thanks for involving us in the care of this patient. We will follow along with you. Job ID: [id number]
[2019-03-04] MEDS: Metoprolol Tartrate 50 MG TAB PO SCH (20:26)
[2019-03-04] MEDS ORDERED: Atorvastatin Calcium 40 MG TAB PO SCH (21:00)
[2019-03-04] MEDS ORDERED: Metoprolol Tartrate 25 MG TAB PO SCH (21:00)
[2019-03-04 22:41] LABS: HBSAg Index 0.28 S/CO (0-0.99); Hep B Surf Ag Non-Reactive S/CO (NonReactive)
[2019-03-05 05:21] LABS: #Basophils 0.1 thou/uL (0.0-0.2); #Eosinphils 0.8 thou/uL (0.0-0.7); #Lymphocytes 1.3 thou/uL (1.20-3.40); #Monocytes 0.7 thou/uL (0.11-0.59); #Neutrophils 3.1 thou/uL (1.40-6.50); %Basophils 0.9 % (0.0-1.0); %Lymphocytes 21.9 % (21.0-51.0); %Monocytes 11.8 % (0.0-10.0); %Neutrophils 51.4 % (42.0-75.0); Hemoglobin 8.6 g/dL (14.0-18.0); Mean Corpuscular HGB CONC 32.8 g/dL (32.0-36.0); Mean Corpuscular Hemoglobin 29.3 pg (27.0-31.0); Mean Corpuscular Volume 89.3 fL (78.0-98.0); Mean Platelet Volume 7.5 fL (7.4-10.4); Platelet Count 216 thou/uL (130-400); RBC Distribution Width 15.5 % (11.5-14.5); Red Blood Cell (RBC) Count 2.93 mill/uL (4.70-6.10)
[2019-03-05 05:43] LABS: Anion Gap 12 mmol/L (10-20); BUN (Urea Nitrogen) 11 mg/dL (8.4-25.7); Calc. Creatinine Clearance 17 mL/min (70-130); Calcium 7.4 mg/dL (7.8-10.44); Carbon Dioxide 30 mmol/L (23-31); Chloride 100 mmol/L (98-107); Estimated GFR-MDRD 11; Glucose 92 mg/dL (80-115); Potassium 3.5 mmol/L (3.5-5.1); Sodium 138 mmol/L (136-145)
[2019-03-05] MEDS: Calcium Acetate 667 MG CAP PO SCH (08:25)
[2019-03-05] MEDS: Metoprolol Tartrate 50 MG TAB PO SCH (08:27)
[2019-03-05] MEDS ORDERED: NIFEdipine XL 30 MG TAB PO SCH ×2 (09:00)
[2019-03-05] MEDS ORDERED: NIFEdipine XL 90 MG TAB PO SCH (09:00)
[2019-03-05] MEDS ORDERED: Enoxaparin Sodium 30 MG/0.3 ML SYRINGE SC SCH (09:00)
[2019-03-05] MEDS ORDERED: Cinacalcet HCl 30 MG TAB PO SCH (09:00)
[2019-03-05] MEDS ORDERED: Lisinopril 10 MG TAB PO SCH ×2 (09:00)
[2019-03-05] MEDS ORDERED: Clopidogrel Bisulfate 75 MG TAB PO SCH (09:00)
[2019-03-05 09:06] LABS: Troponin I 0.093 ng/mL (< 0.028)
--- NOTE | 2019-03-05 09:07 | PRG ---
DATE OF SERVICE: 03/05/2019 SERVICE: Nephrology. SUBJECTIVE: A 63-year-old male with end-stage renal disease, on hemodialysis, hypertension, diabetes, as well as prior coronary artery disease status post CABG, admitted due to chest pain. Nephrology is seen for end-stage renal disease management and hypertension. The patient was found to have elevated blood pressure with systolic above 200 on presentation. Reports chest pain has subsided. Had a good night sleep with no chest pain overnight. Denied shortness of breath. Tolerated hemodialysis well yesterday evening. OBJECTIVE: VITAL SIGNS: Temperature 97.3, pulse 89, respiratory rate 18, SpO2 of 100% on room air, blood pressure is 172/79. GENERAL: Comfortable male, in no distress. Afebrile. Anicteric. Acyanotic. HEENT: Normocephalic, atraumatic. Oral mucosa is moist. CARDIOVASCULAR: Regular rhythm and rate with normal heart sounds one and two. RESPIRATORY: Fair air entry bilaterally with no obvious crackle or rhonchi or use of accessory muscles. GI: Full, soft, nontender, nondistended with normal bowel sounds. Right lower quadrant PD catheter noted. EXTREMITIES: Right foot dressing noted as well as bilateral leg edema, more on the right. GANG MOWER OPERATOR: Conscious and alert oriented x3 with appropriate mental status. DIAGNOSTIC DATA: CBC showed WBC count of 6.0, hemoglobin of 8.6, platelet of 216. BMP showed sodium 138, potassium 3.5, chloride 100, CO2 of 30, BUN 11, creatinine 6.36, glucose 92, calcium 7.2. ASSESSMENT: 1. Hypertensive urgency: Most likely due to volume overload and inadequate treatment. Contribution from acute pain cannot be ruled out. Blood pressure has improved. Still however suboptimal. We will increase lisinopril to 20 mg daily. We will continue home dose nifedipine 90. Further treatment to follow depending on hospital course. 2. End-stage renal disease, on hemodialysis. The patient had additional treatment yesterday. Leg swelling and blood pressure have improved. 3. Hypokalemia, corrected. 4. Chest pain with mild elevation in troponin. This is concerning for unstable angina given the patient's risk factors of coronary artery disease as well as end-stage renal disease status. We will get repeat troponin today. 5. Diabetes mellitus: Treatment as per primary attending. 6. Right foot wound: Treatment as per primary attending. 7. Disposition: The patient can be discharged from Nephrology point of view to continue outpatient hemodialysis using his outpatient schedule of Wednesday, Wednesday, Wednesday. Other treatment as per primary attending. Job ID: [id number]
[2019-03-05 11:27] VITALS: BP 150/67; TEMP 97.6
--- NOTE | 2019-03-05 12:34 | DIS ---
DATE OF ADMISSION: 03/04/2019 DATE OF DISCHARGE: 03/05/2019 DISCHARGE DIAGNOSES: 1. Hypertensive urgency, resolved. 2. Volume overload secondarily to end-stage renal disease and hypertension, improved. 3. End-stage renal disease with hemodialysis, stable. 4. Elevated troponin I secondarily to demand ischemia and volume overload. 5. Diabetes mellitus, type 2, insulin requiring. 6. Anemia of chronic kidney disease. CONSULTATIONS: Dr. Baez with Nephrology Service. PERTINENT LABORATORY AND X-RAY FINDINGS: Potassium ranged between 3.3 to 3.5. Creatinine ranged between 6.36 to 7.88. Estimated GFR ranged between 8 to 11. Magnesium level 1.7. Phosphorus level 3.7. Troponin I ranged between 0.045 to 0.093. BNP 2265. CBC showed a hemoglobin of 8.6, hematocrit 26, and MCV 89. Portable chest x-ray dated 03/04/2019, showed left basilar parenchymal opacity, likely pleural effusion. CT of the chest with aortic dissection protocol dated 03/04/2019, showed no evidence for dissection or aneurysm. Mild bilateral pleural effusions. HOSPITAL COURSE: The patient was observed on the telemetry unit after initially presenting with hypertensive urgency and volume overload in the context of end-stage renal disease on dialysis. The patient was noted in volume overload and taken for hemodialysis during the hospital course. The patient had excellent volume removal and overall clinically stabilized with hemodialysis intervention. The patient was noted with elevated troponin I in the context of acute volume overload due to end-stage renal disease. The patient was adjusted on his blood pressure regimen with increasing lisinopril to 20 mg daily and metoprolol to 50 mg b.i.d. The patient's blood pressure trend overall stabilized and the patient remained clinically stable during the hospital course. I have examined the patient at the time of discharge and discussed followup instructions. The patient verbalizes understanding and in agreement and ready for discharge on 03/05/2019. DISCHARGE MEDICATIONS: 1. Aspirin 325 mg p.o. daily. 2. Lipitor 80 mg p.o. at bedtime. 3. Calcitriol 0.5 mcg 2 capsules p.o. daily. 4. Calcium acetate 667 mg 2 tablets p.o. t.i.d. with meals. 5. Sensipar 30 mg p.o. daily. 6. Tradjenta 5 mg p.o. daily. 7. Nifedipine extended release 90 mg p.o. daily. 8. Lisinopril 20 mg p.o. daily. 9. Metoprolol tartrate 50 mg p.o. b.i.d. FOLLOWUP: The patient to follow up with his primary care provider, Dr. Veronica Padilla, within 7 days of discharge. The patient will follow up with Dr. Anna Gonzales with Nephrology Service and continue hemodialysis 3 times per week. CONDITION ON DISCHARGE: Stable. ACTIVITY: Ad-jonathan. DIET: ADA, heart healthy, and renal. CODE STATUS: Full. DISPOSITION: Home on 03/05/2019. Job ID: [id number]
== END 2019-03-05 12:57 | disposition home or self-care (01) ==
LOC: ERS 10:59 → 2SW 14:07
PROVIDERS: ADMIT Internal Medicine; ATTEND Internal Medicine
DX: I16.0 Hypertensive urgency (principal); I12.0 Hypertensive chronic kidney disease with stage 5 chronic kidney disease or end stage renal disease; E11.22 Type 2 diabetes mellitus with diabetic chronic kidney disease; N18.6 End stage renal disease; N17.9 Acute kidney failure, unspecified; D63.1 Anemia in chronic kidney disease; E87.70 Fluid overload, unspecified; E78.5 Hyperlipidemia, unspecified; E11.42 Type 2 diabetes mellitus with diabetic polyneuropathy; I25.10 Atherosclerotic heart disease of native coronary artery without angina pectoris; Q79.0 Congenital diaphragmatic hernia; J90 Pleural effusion, not elsewhere classified; E87.6 Hypokalemia; I24.8 Other forms of acute ischemic heart disease; Z79.4 Long term (current) use of insulin; Z79.899 Other long term (current) drug therapy; Z88.5 Allergy status to narcotic agent; Z95.1 Presence of aortocoronary bypass graft; Z99.2 Dependence on renal dialysis
CPT/HCPCS: 36415; 36416; 71045; 71275; 72191; 74175; 80048; 80053; 82553; 83690; 83735; 83880; 84100; 84484; 85025; 87340; 90935; 93005; 94640; 96374; 96375; G0257; G0378; J0360; J7620; Q9967

== ENCOUNTER 2019-03-23 10:10 | Day surgery (SDC) | payer MEDICARE, MEDICAID ==
[2019-03-22 09:58] VITALS: BMI 31.5
[2019-03-23] MEDS ORDERED: Acetaminophen 500 MG TAB ONE (10:48)
[2019-03-23] MEDS ORDERED: Lidocaine 2% w/Epinephrine 1:200K 20 ML VIAL ONE (10:57)
[2019-03-23] MEDS ORDERED: Bupivacaine 0.25% HCL 30 ML VIAL ONE (10:57)
[2019-03-23] MEDS ORDERED: Propofol 500 MG/50 ML VIAL ONE (11:37)
[2019-03-23] MEDS ORDERED: Fentanyl 100 MCG/2 ML VIAL ONE (11:37)
[2019-03-23] MEDS ORDERED: Midazolam HCl 2 mg/2 ml Vial ONE (11:37)
[2019-03-23 11:49] LABS: Mean Corpuscular HGB CONC 30.7 g/dL (32.0-36.0); Mean Corpuscular Hemoglobin 27.5 pg (27.0-31.0); Mean Corpuscular Volume 89.4 fL (78.0-98.0); Mean Platelet Volume 8.6 fL (7.4-10.4); Platelet Count 288 thou/uL (130-400); RBC Distribution Width 15.3 % (11.5-14.5); Red Blood Cell (RBC) Count 3.29 mill/uL (4.70-6.10); White Blood Cell (WBC) Count 7.7 thou/uL (4.8-10.8)
[2019-03-23 12:05] LABS: Anion Gap 12 mmol/L (10-20); BUN (Urea Nitrogen) 19 mg/dL (8.4-25.7); Calc. Creatinine Clearance 16 mL/min (70-130); Calcium 8.2 mg/dL (7.8-10.44); Carbon Dioxide 32 mmol/L (23-31); Chloride 100 mmol/L (98-107); Estimated GFR-MDRD 10; Glucose 68 mg/dL (80-115); Potassium 4.2 mmol/L (3.5-5.1); Sodium 140 mmol/L (136-145)
[2019-03-23 12:09] LABS: Band 2 % (5-11); Eosinophils 7 % (0-10); Lymphocytes 23 % (21-51); MDiff Complete? YES; Monocytes 17 % (0-10); Neutrophil 43 % (42-75); Reactive Lymphocytes 8 % (0-10)
--- NOTE | 2019-03-23 16:06 | PDOC.OP ---
Operative Note - Operative Note Operative Note: PROCEDURE: Removal of tunneled peritoneal dialysis catheter SURGEON: Yael Campuzano M.D. DATE: 03/23/2019 PREOPERATIVE DIAGNOSIS: End-stage renal failure POSTOPERATIVE DIAGNOSIS: End-stage renal HISTORY: Patient is a previous peritoneal dialysis patient who has converted to hemodialysis. He does not anticipate returning to peritoneal dialysis would like to have his catheter removed. PROCEDURE IN DETAIL: After informed consent was obtained the patient was taken to the operating room he was placed in supine position and monitored anesthesia care was administered. He was prepped and draped in standard sterile fashion and local anesthesia infused the skin and subcutaneous tissues surrounding the on peritoneal dialysis catheter. A skin incision was made. The subcutaneous cuff was dissected free and the catheter traced down to the internal cuff and the rectus muscles. This was dissected free as well and the peritoneal catheter removed and confirmed to be intact. The anterior rectus sheath was reapproximated with a 0 Vicryl suture on a UR 6 needle. The subcutaneous tissues were irrigated with saline and approximated with Vicryl suture. The skin incision was closed with 4-0 subcuticular Monocryl suture and Dermabond dressings were placed. The patient was taken to recovery in good condition. Estimated blood loss is minimal. There were no complications. There were no specimens.
== END 2019-03-23 14:02 | disposition home or self-care (01) ==
LOC: SDC 10:10
PROVIDERS: ATTEND Surgery
PROC: 0WP Anatomical Regions, General, Removal (ICD-10-PCS; principal; 2019-03-23)
DX: I12.0 Hypertensive chronic kidney disease with stage 5 chronic kidney disease or end stage renal disease (principal); E11.22 Type 2 diabetes mellitus with diabetic chronic kidney disease; N18.6 End stage renal disease; Z79.2 Long term (current) use of antibiotics; Z79.82 Long term (current) use of aspirin; Z79.899 Other long term (current) drug therapy; Z88.5 Allergy status to narcotic agent; M19.90 Unspecified osteoarthritis, unspecified site
CPT/HCPCS: 80048; 85025; 93005; 93010; J0690; J2250; J2704; J3010; S0020

== ENCOUNTER 2019-10-06 20:12 | Inpatient (IN) | payer MEDICARE, MEDICAID, OTHER ==
[2019-10-06] MEDS ORDERED: Nitroglycerin 0.4 MG TAB 1 EACH ONE (21:31)
[2019-10-06] MEDS ORDERED: Aspirin Chewable 81 MG TAB ONE (21:37)
[2019-10-06 22:36] LABS: Troponin I 0.946 ng/mL (< 0.028)
[2019-10-06] MEDS ORDERED: Enoxaparin Sodium 80 MG/0.8 ML SYRINGE ONE (23:03)
[2019-10-06] MEDS ORDERED: Adacel (T-DAP) 0.5 ML SYRINGE ONE (23:05)
[2019-10-07] MEDS ORDERED: hydrALAZINE 20 MG/ML VIAL SLOW IVP PRN (01:06)
[2019-10-07] MEDS ORDERED: Dextrose 5% in Water 1,000 ML IV PRN (01:07)
[2019-10-07] MEDS ORDERED: Insulin Regular 300 UNITS/3 ML VIAL SC PRN (01:07)
[2019-10-07] MEDS ORDERED: Dextrose 50% Abboject 50 ML SYRINGE SLOW IVP PRN (01:07)
[2019-10-07] MEDS ORDERED: Morphine 2 MG/ML SYRINGE SLOW IVP PRN (01:12)
[2019-10-07] MEDS ORDERED: Morphine 2 MG/ML SYRINGE ONE (01:13)
[2019-10-07 01:15] LABS: Troponin I 1.058 ng/mL (< 0.028)
[2019-10-07 02:33] VITALS: BMI 26.7
--- NOTE | 2019-10-07 02:52 | HP ---
REASON FOR ADMISSION: Chest pain. HISTORY OF PRESENT ILLNESS: This is a 64-year-old male patient, who presented for chest pain. History going back to a week before his presentation. He claims that he has been having chest pain localized in the middle and right side of his chest. He did not seek medical attention until tonight because he felt that his heart rate was elevated, he is somewhat of a poor historian. From the ER records, I see that his chest pain lasted 20 minutes and responded to nitroglycerin and morphine. Also, it seems that he ran out of his metoprolol. He did have hemodialysis earlier today. I did review his records and his last admission was approximately three days ago with non-ST elevation [place] and hyperkalemia due to missed hemodialysis session. Also, there is a documented noncompliance with his medication. During his stay, he was seen by Cardiology and Nephrology. He was started on nitroglycerin drip and heparin drip for non-ST elevation [place] and subsequently did get hemodialysis. He also left the hospital against medical advice. PAST MEDICAL HISTORY: 1. End-stage renal disease on hemodialysis. 2. Coronary artery disease post CABG. 3. Diabetes, type 2. 4. High cholesterol. 5. Anemia of chronic disease. 6. Peripheral neuropathy. 7. Chronic right foot wound. 8. AV fistula, left upper extremity. 9. Still has a peritoneal dialysis catheter. 10. Right great toe amputation. SOCIAL HISTORY: He does not drink. Does not use alcohol. FAMILY HISTORY: No premature coronary artery disease. ALLERGIES: ALLERGY TO ULTRAM. REVIEW OF SYSTEMS: All systems reviewed except the above mentioned, found to be negative. PHYSICAL EXAMINATION: GENERAL: Awake, alert, and oriented, does not appear in distress. VITAL SIGNS: His blood pressure is 181/89, heart rate of 101, temperature is 98.6, and saturating 100% room air. HEENT: Head is nontraumatic and normocephalic. Pupils are equal and reactive. Extraocular movements are intact. Nonicteric sclerae. Well injected conjunctivae. Oral mucosa normal. Nasal mucosa normal. NECK: Supple. No adenopathy. No murmur. Thyroid is not palpable. Trachea is midline. No supraclavicular lymphadenopathy. HEART: S1 and S2. Regular. No murmur. No gallops. No friction rubs. No displacement of PMI. LUNGS: Clear to auscultation bilaterally. No wheezes, rhonchi, or crackles. ABDOMEN: Bowel sounds are positive. Nontender abdomen. No hepatosplenomegaly. EXTREMITIES: No lower extremity edema. No cyanosis noted. NEUROLOGIC: Cranial nerves 2 through 12 within normal limits. Normal motor function. Normal sensory function. Normal reflexes. LABORATORY DATA: Blood work shows WBC of 7.9 and hemoglobin of 11. Potassium 5.2, sodium 143, BUN 27, and creatinine 7.9. Troponin 0.5 and repeat 0.946. Chest x-ray shows no acute disease. EKG shows evidence of LVH, normal sinus rhythm, as per my read. ASSESSMENT AND PLAN: This is a 64-year-old male patient, who is presenting with recurrence of his chest pain in the setting of increased blood pressure due to noncompliance. The patient was recently here and left against medical advice. Cardiac. The patient will be admitted to telemetry. We will continue cycling his cardiac enzymes. He did receive a full dose of Lovenox in the emergency room. We will be awaiting Cardiology input for further recommendation, until then we will practice blood pressure control. We will resume his home medications and we will provide him with morphine for pain control. Renal system/electrolytes. The patient has end-stage renal disease. He goes to hemodialysis. It seems that he does not need to be dialyzed. He just got dialyzed today. Will be following his electrolytes on a daily basis. Might need to be dialyzed on Wednesday, as per his schedule. Endocrinology. He is diabetic. Continue with insulin sliding scale. For deep venous thrombosis prophylaxis, he will be on sequential compression devices. Job ID: [id number]
[2019-10-07 04:52] LABS: #Basophils 0.1 thou/uL (0.0-0.2); #Eosinphils 0.7 thou/uL (0.0-0.7); #Lymphocytes 2.2 thou/uL (1.20-3.40); #Monocytes 0.9 thou/uL (0.11-0.59); #Neutrophils 2.9 thou/uL (1.40-6.50); %Basophils 1.2 % (0.0-1.0); %Eosinophils 10.3 % (0.0-10.0); %Lymphocytes 32.5 % (21.0-51.0); %Monocytes 13.7 % (0.0-10.0); %Neutrophils 42.2 % (42.0-75.0); Hemoglobin 10.8 g/dL (14.0-18.0); Mean Corpuscular HGB CONC 31.1 g/dL (32.0-36.0); Mean Corpuscular Hemoglobin 28.7 pg (27.0-31.0); Mean Corpuscular Volume 92.5 fL (78.0-98.0); Mean Platelet Volume 7.9 fL (7.4-10.4); Platelet Count 282 thou/uL (130-400); RBC Distribution Width 12.9 % (11.5-14.5); Red Blood Cell (RBC) Count 3.75 mill/uL (4.70-6.10); White Blood Cell (WBC) Count 6.8 thou/uL (4.8-10.8)
[2019-10-07] MEDS: Nitroglycerin 2% Ointment 1 INCH/1 GM Packet TOP SCH ×2 (04:57→13:37)
[2019-10-07 05:18] LABS: Anion Gap 17 mmol/L (10-20); BUN (Urea Nitrogen) 35 mg/dL (8.4-25.7); Calc. Creatinine Clearance 10 mL/min (70-130); Calcium 9.4 mg/dL (7.8-10.44); Carbon Dioxide 29 mmol/L (23-31); Chloride 96 mmol/L (98-107); Estimated GFR-MDRD 7; Glucose 79 mg/dL (80-115); Potassium 4.6 mmol/L (3.5-5.1); Sodium 137 mmol/L (136-145)
[2019-10-07] MEDS ORDERED: Metoprolol Tartrate 50 MG TAB PO SCH ×2 (09:30→21:00)
[2019-10-07] MEDS ORDERED: hydrALAZINE 25 MG TAB PO SCH (09:30)
[2019-10-07] MEDS: Lisinopril 20 MG TAB PO SCH ×2 (10:19→10:26)
[2019-10-07 11:47] VITALS: BP 133/70; TEMP 97.9
--- NOTE | 2019-10-07 12:45 | PDOC.HOSPP ---
- Subjective Encounter Date: 10/07/19 Subjective: Patient was seen this morning. Patient appeared angry. He made it clear that he would be leaving today regardless of our plan. He stated that he needed to eat. He denies having any further chest pains. - Objective Vital Signs & Weight: Vital Signs (12 hours) Temp Pulse Resp BP BP BP Pulse Ox 10/07/19 10:56 97.9 F 105 H 13 133/70 97 10/07/19 10:18 114 H 10/07/19 07:57 98.5 F 114 H 14 146/79 H 97 10/07/19 03:56 97.3 F L 112 H 20 149/73 H 99 10/07/19 02:15 98 10/07/19 01:50 97.3 F L 102 H 20 177/85 H 98 Weight Weight 186 lb 6 oz Result Diagrams: 10/07/19 04:27 10/07/19 04:27 Additional Labs: Accuchecks 10/07/19 10/07/19 10/07/19 11:01 09:14 05:35 POC Glucose 75 83 77 Hospitalist ROS - Medication Medications: Active Medications Generic Name Dose Route Start Last Admin Trade Name Freq PRN Reason Stop Dose Admin Lisinopril 20 mg 10/07/19 09:30 10/07/19 10:26 Zestril PO 10/07/19 13:00 Not Given NOW [facility] Metoprolol Tartrate 50 mg 10/07/19 09:30 10/07/19 10:19 Lopressor PO 10/07/19 13:00 50 mg NOW EMANUEL Administration Nitroglycerin 0.5 inch 10/07/19 06:00 10/07/19 04:57 Nitro-Bid 2% Ointment TOP 0.5 inch Q8HR EMANUEL Administration - Exam General Appearance: NAD, awake alert Heart: RRR, no murmur, no gallops, no rubs, normal peripheral pulses Respiratory: CTAB, no wheezes, no rales, no ronchi, normal chest expansion, no tachypnea, normal percussion Gastrointestinal: soft, non-tender, non-distended, normal bowel sounds, no palpable masses, no hepatomegaly, no splenomegaly, no bruit Extremities: no cyanosis, no clubbing, no edema Musculoskeletal: normal tone, normal strength, no muscle wasting Psychiatric: normal affect Hosp A/P (1) NSTEMI (non-ST elevated myocardial infarction) Code(s): I21.4 - NON-ST ELEVATION (NSTEMI) MYOCARDIAL INFARCTION Status: Acute (2) Chest pain Code(s): R07.9 - CHEST PAIN, UNSPECIFIED Status: Acute (3) S/P CABG (coronary artery bypass graft) Code(s): Z95.1 - PRESENCE OF AORTOCORONARY BYPASS GRAFT Status: Acute (4) Coronary artery disease Code(s): I25.10 - ATHSCL HEART DISEASE OF [place] CORONARY ARTERY W/O ANG PCTRS Status: Chronic (5) ESRD (end stage renal disease) on dialysis Code(s): N18.6 - END STAGE RENAL DISEASE; Z99.2 - DEPENDENCE ON RENAL DIALYSIS Status: Chronic (6) Hypertension Code(s): I10 - ESSENTIAL (PRIMARY) HYPERTENSION Status: Chronic (7) Type 2 diabetes mellitus Status: Chronic (8) Peripheral vascular disease Code(s): I73.9 - PERIPHERAL VASCULAR DISEASE, UNSPECIFIED Status: Acute - Plan Chest pain: Patient has a history of known coronary disease and prior bypass. Patient sees Dr. Quijano in [place]. He was admitted to that facility with similar symptoms and a slight elevation of his troponin. He left there AGAINST MEDICAL ADVICE just a couple of days ago. He presented here again with chest pain. Reviewing his record from the last admission in [place] reveals that he apparently did have some abnormality on his stress test which was being managed medically. His pain is resolved now. His troponins are elevated. This is suggestive of an NSTEMI however must be considered in the context of his kidney disease. Had a long discussion with the patient. He was made n.p.o. in order to wait for cardiology assessment to determine if some type of intervention would be indicated. He is at liberty to make the choice to eat or drink at anytime he so chooses. Doing so would only delay testing or intervention that would require n.p.o. status, but that is entirely his choice. He ultimately decided that he would wait a few hours to see if cardiology would come around and make a decision on his need to remain n.p.o. Continue with telemetry. He did receive aspirin and Lovenox last evening. He remains on a statin. Coronary artery disease: As above. Continue beta-samreen, aspirin, statin. End-stage renal disease: Patient follows with Dr. Castillo. Will consult him if needed. Diabetes mellitus: Well controlled. Takes Tradjenta as an outpatient. Does not carry it by our hospital. Will continue sliding scale. Hypertension: Continue beta-samreen and hydralazine. Peripheral vascular disease: Patient is aware of this diagnosis and the need to follow-up with Dr. Quijano at some point. Disposition: As stated above reiterated to the patient repeatedly that he was in control of what happened to him here. He is welcome to eat or drink at any time he needs to do so. He initially refused to take his morning medications because he was going to have an empty stomach. He subsequently decided he would take his morning medications. I was just notified that he is now saying that he intends to leave because we are not a proper hospital or proper doctors because we are disallowing him to eat or drink which is entirely contrary to the conversation that we had. Again was clear that the patient is free to eat or drink as he deems necessary or desires.
[2019-10-07] MEDS ORDERED: Aspirin 81 mg Enteric Coated Tablet PO SCH (13:00)
[2019-10-07 14:09] LABS: SARS-CoV-2 MS2 Positive; SARS-CoV-2 N Gene Negative; SARS-CoV-2 S Gene Negative; SARS-CoV-2 by NAA Not Detected (NotDetected); SARS-CoV-2 orf1ab Negative
--- NOTE | 2019-10-07 17:22 | DIS ---
DATE OF ADMISSION: 10/06/2019 DATE OF DISCHARGE: 10/07/2019 DISCHARGE DIAGNOSES: 1. Non-ST segment elevation myocardial infarction. 2. Chest pain. 3. Coronary artery disease. 4. History of abnormal stress test. 5. Peripheral vascular disease. 6. End-stage renal disease, on dialysis. 7. Diabetes mellitus. 8. Hypertension. HISTORY: The patient is a 64-year-old male, who follows with Dr. Quijano in [place]. The patient was just admitted to that facility for a couple of days before leaving against medical advice even while under the care of his income tax advisor. The patient subsequently presented back to this facility with chest pain. His troponin was slightly elevated, consistent with an NSTEMI and were slightly higher than his values were when he was in the [place] facility. The patient was admitted to the hospital on telemetry and had serial troponins, which did trend up slightly. He had a Cardiology consult in place. However, in the morning when I evaluated the patient, he was adamant that he was leaving today regardless of what he was told by us. He was angry that he had been made n.p.o., awaiting Cardiology and essentially accused us of withholding food from him. I counseled the patient at great length to explain to him that the decisions were all his and that he was the boss and was in control of what happened to him here as well. He was welcome to eat and drink at any time he felt he needed to do so, although the reason for keeping him n.p.o. was explained. He ultimately decided to stay and give it a few hours. He subsequently again said we were withholding food. I again explained that he was free to do whatever he felt he needed to do as far as eating or drinking, but it might delay workup or intervention. A diet was ordered for him. However, he subsequently decided to leave against medical advice before being seen by Cardiology. Job ID: [id number]
[2019-10-07] MEDS ORDERED: Atorvastatin Calcium 40 MG TAB PO SCH (21:00)
[2019-10-07] MEDS ORDERED: cloNIDine 0.1 MG TAB PO SCH (21:00)
[2019-10-08] MEDS ORDERED: Aspirin 81 mg Enteric Coated Tablet PO SCH (09:00)
[2019-10-08] MEDS ORDERED: Lisinopril 10 MG TAB PO SCH (09:00)
[2019-10-08] MEDS ORDERED: hydrALAZINE 25 MG TAB PO SCH (09:00)
--- NOTE | 2019-10-14 15:19 | EKG ---
Test Reason : CP Blood Pressure : / mmHG Vent. Rate : 090 BPM Atrial Rate : 090 BPM P-R Int : 224 ms QRS Dur : 100 ms QT Int : 356 ms P-R-T Axes : 057 003 146 degrees QTc Int : 435 ms Sinus rhythm with 1st degree A-V block Possible Left atrial enlargement Left ventricular hypertrophy with repolarization abnormality Abnormal ECG Confirmed by ROBERT BARROW DO ([id number]), editor greeting card SAMANTHA WISE ([id number]) on 10/14/2019 3:19:12 PM Referred By: Confirmed By:ROBERT BARROW DO
--- NOTE | 2019-10-14 15:19 | EKG ---
Test Reason : CP Blood Pressure : / mmHG Vent. Rate : 097 BPM Atrial Rate : 097 BPM P-R Int : 236 ms QRS Dur : 104 ms QT Int : 356 ms P-R-T Axes : 059 013 163 degrees QTc Int : 452 ms Sinus rhythm with 1st degree A-V block Possible Left atrial enlargement Left ventricular hypertrophy with repolarization abnormality Abnormal ECG #2 Confirmed by ROBERT BARROW DO ([id number]), editor house organ SAMANTHA WISE ([id number]) on 10/14/2019 3:19:22 PM Referred By: Confirmed By:ROBERT BARROW DO
== END 2019-10-07 15:30 | disposition left against medical advice (07) | DRG 280 ==
LOC: ERS 20:12 → 2NO 21:41
PROVIDERS: ADMIT Internal Medicine; ATTEND Internal Medicine
DX: I21.4 Non-ST elevation (NSTEMI) myocardial infarction (principal); N18.6 End stage renal disease; I12.0 Hypertensive chronic kidney disease with stage 5 chronic kidney disease or end stage renal disease; I25.10 Atherosclerotic heart disease of native coronary artery without angina pectoris; E11.51 Type 2 diabetes mellitus with diabetic peripheral angiopathy without gangrene; E11.22 Type 2 diabetes mellitus with diabetic chronic kidney disease; E78.5 Hyperlipidemia, unspecified; E78.00 Pure hypercholesterolemia, unspecified; E66.9 Obesity, unspecified; D63.1 Anemia in chronic kidney disease; E11.42 Type 2 diabetes mellitus with diabetic polyneuropathy; Z99.2 Dependence on renal dialysis; Z95.1 Presence of aortocoronary bypass graft; Z68.26 Body mass index [BMI] 26.0-26.9, adult; Z89.411 Acquired absence of right great toe; Z88.8 Allergy status to other drugs, medicaments and biological substances; Z91.19 Patient's noncompliance with other medical treatment and regimen; Z79.899 Other long term (current) drug therapy; Z79.84 Long term (current) use of oral hypoglycemic drugs
CPT/HCPCS: 36415; 36416; 80048; 84132; 84484; 85025; 87635; 90715; 93005; 94760; 96372; 96374; J1650; J2270; U0003